=== PATIENT | male | born 1940 | race Caucasian/White ===

== ENCOUNTER → 2016-10-19 | Outpatient (CLI) | payer BC, OTHER ==
[~2016-10-19] MED LIST: CYAN500T13 PO; FINA5TAB PO; HYDR-5688 PO; MULT-506 PO; PANT40TA PO; SILD100T PO
--- NOTE | 2016-10-19 08:05 | DIAGNOSTIC IMAGING REPORT ---
INGUINAL ULTRASOUND CLINICAL HISTORY: RLQ PAIN COMPARISON STUDY: CT scan dated 511 FINDINGS: There is a small fat-containing reducible right internal hernia. IMPRESSION: Small fat-containing right inguinal hernia. Electronically signed by: Chase Donahue M.D. 10/19/2016 8:04 AM Dictated Date/Time: 10/19/2016 8:03 AM
== END | disposition home or self-care (01) ==
LOC: C.ULTR 07:36
PROVIDERS: ATTEND Family Medicine
DX: R10.31 Right lower quadrant pain (principal); K40.90 Unilateral inguinal hernia, without obstruction or gangrene, not specified as recurrent

== ENCOUNTER 2017-01-17 06:23 | Day surgery (SDC) | payer BC, OTHER ==
[2017-01-08 10:13] VITALS: Ht 182.9 cm; Wt 106.8 kg
[2017-01-08 10:21] LABS: BASO % 0.5 %; BASO ABS # 0.03 K/uL (0-0.2); COMPLETE YES; EOS % 5.1 %; HEMATOCRIT 43.4 % (42-52); IG% 1.1 %; LYMPH % 28.6 %; LYMPH ABS # 1.62 K/uL (1.2-3.4); MEAN CELL VOLUME 89.1 fL (80-100); MEAN CORPUSCULAR HGB CONC 34.8 g/dl (32-36); MEAN PLATELET VOLUME 9.2 fL (7.4-10.4); MONO % 11.3 %; NEUT % 53.4 %; PLATELET COUNT 239 K/uL (130-400); RED BLOOD COUNT 4.87 M/uL (4.7-6.1); WHITE BLOOD COUNT 5.67 K/uL (4.8-10.8)
--- NOTE | 2017-01-08 10:49 | PAT Medication Instructions ---
Service Date January 08, 2017. Current Home Medication List Cyanocobalamin (Vitamin B12 500MCG), 500 MCG PO QPM Multivitamin (Multivitamin), 1 TAB PO QPM Pantoprazole (Protonix), 40 MG PO HS Sildenafil Citrate (Viagra), 100 MG PO PRN Medication Instructions For Your Scheduled Surgery - Hold the following medications 24 hours prior to surgery: Sildenafil Citrate (Viagra), 100 MG PO PRN - Take the following medications as scheduled the night before surgery: Pantoprazole (Protonix), 40 MG PO HS Multivitamin (Multivitamin), 1 TAB PO QPM Cyanocobalamin (Vitamin B12 500MCG), 500 MCG PO QPM If you have any questions please call us at [phone] or [phone] ( Yasmeen) or [phone]
[2017-01-08 11:39] LABS: CALCIUM 8.7 mg/dl (8.5-10.1); CREATININE 0.88 mg/dl (0.60-1.40); POTASSIUM 4.3 mmol/L (3.5-5.1)
[~2017-01-17] VITALS: Ht 182.9 cm; Wt 106.8 kg
[~2017-01-17 06:23] MED LIST changes: +CEFAZOLIN 2000 MG/60 ML D5W IV SCH; -FINA5TAB PO; +HEPARIN SOD 5000 UNIT/0.5 ML CARP SQ SCH; -HYDR-5688 PO; +LACTATED RINGER'S 1000ML 1,000 ML IV SCH
[2017-01-17 07:04] VITALS: BP 143/73; PULSE 69; TEMP 36.7; O2SAT 95
[2017-01-17] MEDS ORDERED: FENTANYL CITRATE INJ 50 MCG/1 ML 2 ML VIAL ONE ×2 (07:15→08:35)
[2017-01-17] MEDS ORDERED: MIDAZOLAM HCL 1 MG/ML 2ML VIAL ONE (07:15)
[2017-01-17] MEDS ORDERED: BUPIVACAINE/EPINEPHRINE 0.5% MPF 1:200,000 30 ML VIAL ONE (08:03)
--- NOTE | 2017-01-17 08:07 | History & Physical Bridge Note ---
H&P Re-Evaluation Bridge Note: I have examined the patient, reviewed the History & Physical and in the interval since the performance of the History & Physical I have noted the following changes of clinical significance: No changes noted
[2017-01-17] MEDS ORDERED: DEXAMETHASONE SOD INJ 4 MG/ML VIAL ONE (08:53)
[2017-01-17] MEDS ORDERED: PROPOFOL IV EMULSION 10 MG/ML 20 ML VIAL IV ONE (08:53)
[2017-01-17] MEDS ORDERED: EpHEDrine SULFATE 50MG/5ML SYR ONE (08:53)
[2017-01-17] MEDS ORDERED: LIDOCAINE HCL 2% 2 ML VIAL (20MG/ML) ONE (08:53)
[2017-01-17] MEDS ORDERED: ROCURONIUM BROMIDE 10 MG/ML 5 ML VIAL ONE (08:53)
[2017-01-17] MEDS ORDERED: HYDR-5688 PO (09:15)
[2017-01-17] MEDS ORDERED: LACTATED RINGER'S 1000ML 1,000 ML IV SCH (09:17)
--- NOTE | 2017-01-17 09:17 | Discharge Instructions ---
Discharge Instructions Date of Service Jan 17, 2017. Visit Reason for Visit: Recurrent Right Inguinal Hernia Discharge Discharge Diagnosis / Problem: laparoscopic hernia repair Discharge Goals Goal(s): Decrease discomfort Activity Recommendations Activity Limitations: as noted below Lifting Limitations: no more than 10 pounds Shower/Bathe: no limitations Driving or Machine Use: resume 3 days after discharge Anesthesia . Post Anesthesia Instructions: If you have had General Anesthesia or IV Sedation: * Do not drive today. * Resume driving when surgeon permits. * Do not make important decisions or sign legal documents today. * Call surgeon for: 1. Temperature elevations greater than 101 degrees F. 2. Uncontrollable pain. 3. Excessive bleeding. 4. Persistent nausea and vomiting. 5. Medication intolerance (nausea, vomiting or rash). * For nausea and vomiting use only clear liquids such as: tea, soda, bouillon until nausea subsides, then gradually increase diet as tolerated. * If you have any concerns or questions, call your surgeon's office. If physician is unavailable and it is an emergency, call 911 or go to the nearest emergency room. . Instructions / Follow-Up Instructions / Follow-Up Dr. Moreland in 1-2 weeks, call [phone] if you do not already have an appt or with any concerns Diet Recommendations Recommended Home Diet: no limitations Procedures Procedures Performed: Laparoscopic Recurrent Right Inguinal Hernia Repair with Mesh Pending Studies Studies pending at discharge: no Medical Emergencies . Who to Call and When: Medical Emergencies: If at any time you feel your situation is an emergency, please call 911 immediately. . Non-Emergent Contact Non-Emergency issues call your: Surgeon Call Non-Emergent contact if: you have a fever, temperature is above 101.5, your pain is not controlled, wound has increased redness . . "Provider Documentation" section prepared by Grasyon Parker. .
[2017-01-17] MEDS ORDERED: ONDANSETRON INJ 2 MG/ML 2 ML VIAL ONE (09:20)
[2017-01-17] MEDS ORDERED: GLYCOPYRROLATE INJ 0.2 MG/ML VIAL ONE (09:20)
[2017-01-17] MEDS ORDERED: NEOSTIGMINE METHYLSULFATE 5 MG/5 ML SYR ONE (09:20)
[2017-01-17] MEDS ORDERED: KETOROLAC TROMETHAMINE 30 MG/ML VIAL ONE (09:21)
[2017-01-17] MEDS ORDERED: HYDROCODONE/ACETAMOPHEN 5/325MG TAB PO PRN (09:30)
[2017-01-17] MEDS ORDERED: EpHEDrine SULFATE INJ 50 MG/ML AMP IV PRN (09:30)
[2017-01-17] MEDS ORDERED: ATROPINE SULFATE 0.1 MG/ML 5ML SYR IV PRN (09:30)
[2017-01-17] MEDS ORDERED: MoRPHine SULFATE 2 MG/ML CARP IV PRN (09:30)
[2017-01-17] MEDS ORDERED: ONDANSETRON INJ 2 MG/ML 2 ML VIAL IV PRN ×2 (09:30)
[2017-01-17] MEDS ORDERED: FENTANYL CITRATE INJ 50 MCG/1 ML 2 ML VIAL IV PRN (09:30)
--- NOTE | 2017-01-17 09:34 | [facility] Operative Report ---
Operative Report Operative Date Jan 17, 2017. Pre-Operative Diagnosis Recurrent Right Inguinal Hernia Post-Operative Diagnosis recurrent RIH Procedure(s) Performed laparoscopic repair of recurrent RIH with mesh enterolysis Surgeon Dr. Moreland Survey Supervisor Surgeon(s) Lemuel Harrington PA-C Estimated Blood Loss 5 cc Findings recurrent direct RIH lower abdominal adhesions Specimens none per surgeon Anesthesia get Complication(s) None Disposition Recovery Room / PACU I attest to the content of the Intraoperative Record and any orders documented therein. Any exceptions are noted below.
[2017-01-17 10:00] VITALS: BP 132/70; PULSE 60; TEMP 36; O2SAT 95
--- NOTE | 2017-01-17 10:14 | Anesthesiology Progress Note ---
Anesthesia Post Op Note Date & Time Jan 17, 2017 at 10:14 Vital Signs Pain Intensity: 0 Vital Signs Past 12 Hours Date Time Temp Pulse Resp B/P (MAP) Pulse Ox O2 Delivery O2 Flow Rate FiO2 01/17/17 09:50 36.0 63 17 126/70 92 Room Air 01/17/17 09:45 65 18 123/73 93 Room Air 01/17/17 09:35 66 18 122/72 95 Room Air 01/17/17 09:25 70 16 135/80 98 Mask 10 01/17/17 09:14 36.1 78 16 147/78 96 Mask 10 01/17/17 07:04 36.7 69 18 143/73 (96) 95 Room Air Notes Mental Status: alert / awake / arousable, participated in evaluation Pt Amnestic to Procedure: Yes Nausea / Vomiting: adequately controlled Pain: adequately controlled Airway Patency, RR, SpO2: stable & adequate BP & HR: stable & adequate Hydration State: stable & adequate Anesthetic Complications: no major complications apparent
[2017-01-17 10:32] VITALS: BP 117/66; PULSE 60; TEMP 36; O2SAT 95
[2017-01-17 11:00] VITALS: BP 123/71; PULSE 71; TEMP 36.1; O2SAT 96
--- NOTE | 2017-01-17 11:03 | OPERATIVE REPORT ---
DATE OF OPERATION: 01/17/2017 PREOPERATIVE DIAGNOSIS: Recurrent right inguinal hernia. POSTOPERATIVE DIAGNOSIS: Recurrent right inguinal hernia as well as intraabdominal adhesions. PROCEDURE PERFORMED: 1. Laparoscopic repair of right inguinal hernia with mesh. 2. Enterolysis. SURGEON: Dr. Moreland. SLOT SERVICE SPECIALIST: Lemuel Parker PA-C. ESTIMATED BLOOD LOSS: Approximately 5 mL. COMPLICATIONS: No immediate. ANESTHESIA: General. The patient tolerated the procedure well. OPERATIVE NOTE: After informed consent was obtained, the patient taken to the operating suite, placed in supine position. After successful intubation, the abdomen was shaved and sterilely prepped and draped in usual fashion. An infraumbilical incision through an old scar was made with an 11 blade scalpel and carried down through the soft tissue using electrocautery. Anterior rectus fascia was opened using electrocautery and two #0 Vicryl stay sutures were placed. Peritoneum was elevated with hemostats and incised under direct vision using a Metzenbaum scissor. A finger sweep was performed. A 12 mm Renetta trocar was placed. The abdomen was insufflated to 18 mmHg. Laparoscope was inserted and the abdomen examined 360 degrees. There were some adhesions in the lower abdomen from small bowel as well as omentum. There was also what appeared to be a direct right inguinal hernia. We placed 2 left mid abdominal 5 mm trocars and placed the patient in a Trendelenburg position and slightly airplaned to the left. The previous left inguinal hernia repair was intact and solid. The patient did have a history of right orchiectomy and we did see some suture material behind the peritoneum. Medial to that in the direct space, there was what originally appeared to be a very small hernia. We used a Harmonic scalpel and initially we took down the adhesions in the lower abdomen. Once the adhesions were taken down, we then opened the peritoneum over the visible hernia and reduced the incarcerated preperitoneal fat. This left a more garden variety type of direct inguinal hernia. There was no bowel or other incarceration after we reduced the fat. Once we skeletonized the fascia of the defect, we then used a piece of Surgimesh with silicone barrier as an onlay. It was secured anteriorly to the anterior abdominal wall using a ProTacker as well as into the pubic bone itself. We tacked it primarily laterally and anteriorly as well as into the pubic bone itself. Once we had it tightly secured there was adequate hemostasis. No other abnormalities were noted within the abdomen. We watched as we slowly deflated the abdomen and the mesh folded upon itself into the defect quite nicely. We removed all the trocars and desufflated the abdomen. The fascia of the camera port was closed using 0 Vicryl in a [id number] fashion. All the wounds were irrigated and closed using 4-0 Monocryl. Marcaine was injected around them for postoperative analgesia and skin glue used as a dressing. The patient was awakened, extubated, and transferred to recovery in stable condition. I attest to the content of the Intraoperative Record and any orders documented therein. Any exception s are noted below.
== END 2017-01-17 11:05 | disposition home or self-care (01) ==
LOC: C.ACU 06:23
PROVIDERS: ATTEND Surgery
DX: K40.91 Unilateral inguinal hernia, without obstruction or gangrene, recurrent (principal); K66.0 Peritoneal adhesions (postprocedural) (postinfection); N40.1 Benign prostatic hyperplasia with lower urinary tract symptoms; N13.8 Other obstructive and reflux uropathy; E78.5 Hyperlipidemia, unspecified; N52.9 Male erectile dysfunction, unspecified; Z79.899 Other long term (current) drug therapy

== ENCOUNTER → 2017-04-08 | Outpatient (CLI) | payer BC, OTHER ==
[~2017-04-08] MED LIST changes: -CEFAZOLIN 2000 MG/60 ML D5W IV SCH; -HEPARIN SOD 5000 UNIT/0.5 ML CARP SQ SCH; +HYDR-5688 PO; -LACTATED RINGER'S 1000ML 1,000 ML IV SCH; +MethylPREDNISolone HOME PACK 16 MG TAB PO SCH; +OPTIRAY 320 IV PRN
--- NOTE | 2017-04-08 13:46 | DIAGNOSTIC IMAGING REPORT ---
PELVIS COMBO CLINICAL HISTORY: 77 years-old Male presenting with postoperative pain after right inguinal hernia repair. TECHNIQUE: Multidetector CT of the pelvis was performed before and after the administration of intravenous contrast. IV contrast: 93 mL of Optiray 320. A dose lowering technique was used consistent with the principles of ALARA (as low as reasonably achievable). COMPARISON: 12/24/2010. CT DOSE (mGy.cm): The estimated cumulative dose is 1407.14 mGycm. FINDINGS: Unit Technician topogram: IVC filter noted. A surgical mesh is now apparent along the anterior peritoneum of the right lower quadrant and right side wall with associated coil fixation john. Small bowel is in direct apposition to the mesh, which may suggest adhesions in this region. No bowel obstruction. No associated fluid collection with the surgical mesh or apparent malpositioning. No recurrent hernia. Sigmoid diverticulosis. No free fluid or gas. Bladder wall thickening is somewhat circumferential but slightly greater along the right anterior aspect. The right anterior dome of the bladder is immediately adjacent to one of the surgical coil john. This appearance is new from prior exam in 2010. Prostate is not significantly enlarged. Vasculature patent. No lymphadenopathy. Degenerative changes of the lower lumbar spine and sacroiliac joints. Bone marrow appears heterogeneously sclerotic, which is nonspecific and unchanged from prior. IMPRESSION: 1. Expected postoperative appearance of surgical mesh status post right lower quadrant hernia repair. No associated fluid collection. 2. Bladder wall thickening somewhat circumferential but slightly greater along the right anterior aspect. Although this could be seen in the setting of chronic outlet obstruction, the prostate is not significantly enlarged. This appearance is new from prior. Urologic consultation recommended. Electronically signed by: Perico Reyes M.D. 04/08/2017 1:45 PM Dictated Date/Time: 04/08/2017 1:39 PM
== END | disposition home or self-care (01) ==
LOC: C.CTS 04-05 13:41
PROVIDERS: ATTEND Surgery
DX: K40.91 Unilateral inguinal hernia, without obstruction or gangrene, recurrent (principal); Z98.890 Other specified postprocedural states; R93.41 Abnormal radiologic findings on diagnostic imaging of renal pelvis, ureter, or bladder; R30.0 Dysuria

== ENCOUNTER → 2017-04-08 | Outpatient (CLI) | payer BC, OTHER ==
[~2017-04-08] MED LIST changes: -MethylPREDNISolone HOME PACK 16 MG TAB PO SCH; -OPTIRAY 320 IV PRN
== END | disposition home or self-care (01) ==
LOC: C.LABSPEC 11:28
PROVIDERS: ATTEND Nurse Practitioner Family
DX: R30.0 Dysuria (principal)

== ENCOUNTER 2017-10-24 18:13 | Emergency (ER) | payer BC, OTHER ==
[~2017-10-24] VITALS: Ht 182.9 cm; Wt 101.0 kg
[~2017-10-24 18:13] MED LIST changes: -HYDR-5688 PO
[2017-10-24 18:23] VITALS: TEMP 36.8
--- NOTE | 2017-10-24 19:29 | EMERGENCY ROOM VISIT NOTE ---
History Report prepared by Killian: Sravan Olson Under the Supervision of: Dr. Juan Sims M.D. First contact with patient: 18:56 Chief Complaint: NEURO SYMPTOMS Stated Complaint: POSSIBLE STROKE, LOSS RT LEG DISLOCATED Nursing Triage Summary: Patient ambulatory to triage with a steady and upright gait, states "I had a long bout with coughing and phlegm. I thought it was the flu. I tried OTC meds and nothing worked. After 10 days, I went for treatment at the [facility]. I was started on an antibiotic. I don't know which one it was. I took it for 10 days but it didn't help. I started having memory loss and shaking on the second of this month. I almost burnt my house down because I can't focus. I have throbbing in my legs and I have some redness on my right lower leg." History of Present Illness The patient is a 77 year old male with a past medical history of previous blood clots, pancreatitis, and steroid induced psychosis who presents to the ED with a cc of intermittent episodes of short term memory loss beginning a week ago. Positive for a productive cough, abdominal pain, leg rash , tremors, and difficulty concentrating. Negative for urinary symptoms. The patient states that he has had flu like symptoms recently, and was prescribed an antibiotic treatment for 10 days. He notes that following his antibiotic treatment he developed his short term memory loss. He reports that he also developed the tremor in his hands. Per , the patient's pace has been slower and he has been more disoriented. Source of History: patient, spouse/significant other Onset: a week ago Position: head Quality: other (short term memory loss) Timing: other (intermittent episodes) Associated Symptoms: + cough (productive), + abdominal pain, + rash (leg), No urinary symptoms Note: The patient also complains of tremors and difficulty concentrating. Per , the patient has been slower and more disoriented than usual. Review of Systems See HPI for pertinent positives and negatives. A total of ten systems were reviewed and were otherwise negative. Past Medical & Surgical Medical Problems: (1) Cholecystectomy (2) Hx of blood clots (3) Idiopathic thrombocytopenic purpura (4) Neuropathy (5) Pancreatitis (6) Steroid-induced psychosis Family History No pertinent family history stated. Social History Smoking Status: Former Smoker Drug Use: none Marital Status: Housing Status: lives with family Occupation Status: retired Current/Historical Medications Scheduled Cyanocobalamin (Vitamin B12 500MCG), 500 MCG PO QPM Multivitamin (Multivitamin), 1 TAB PO QPM Pantoprazole (Protonix), 40 MG PO HS Sildenafil Citrate (Viagra), 100 MG PO PRN Allergies Coded Allergies: Iodinated Contrast Media (Verified Allergy, Unknown, HIVES,HOT FLUSHED FEELING, 10/24/17) Iodine (Verified Allergy, Unknown, HIVES, HOT FLASHES WITH IV DYE0NO PROBLEM WITH TOPICAL, 10/24/17) Prednisone (Verified Adverse Reaction, Severe, PSYCHOSIS, 10/24/17) SEVERE PSYCHOSIS Physical Exam Vital Signs Date Time Temp Pulse Resp B/P (MAP) Pulse Ox O2 Delivery O2 Flow Rate FiO2 10/24/17 23:00 140/97 10/24/17 22:58 73 25 97 10/24/17 22:43 68 20 95 10/24/17 22:30 69 18 125/79 94 Room Air 10/24/17 22:30 125/79 10/24/17 22:28 69 14 95 10/24/17 22:13 69 23 94 10/24/17 22:00 150/93 10/24/17 21:58 69 17 96 10/24/17 21:43 70 14 95 10/24/17 21:30 165/108 10/24/17 21:28 72 15 97 10/24/17 21:13 73 14 96 10/24/17 21:00 72 18 145/89 96 Room Air 10/24/17 21:00 145/89 10/24/17 20:58 72 18 97 10/24/17 20:43 75 22 96 10/24/17 20:30 144/82 10/24/17 20:28 75 21 96 10/24/17 20:13 76 24 96 10/24/17 20:00 141/81 10/24/17 19:58 97 Room Air 10/24/17 19:58 75 18 147/81 97 Room Air 10/24/17 18:23 36.8 96 20 148/93 96 Room Air Physical Exam GENERAL: Awake, alert, well-appearing, NAD HENT: Normocephalic, atraumatic. EYES: Normal conjunctiva. Sclera non-icteric. NECK: Supple. No nuchal rigidity. FROM. RESPIRATORY: CTAB, no rhonchi, wheezing, crackles CARDIAC: RRR, no MRG ABDOMEN: Soft, NTND, BS+ MSK: No chest wall TTP, no LE edema, mild dysmetria with RUE, mild intention tremor with LUE. NEURO: CN 2-12 intact, 5/5 upper and lower extremity strength, no dysmetria, no drift, good finger to nose, no sensory deficits. SKIN: No jaundice noted, non-blanching petechial rash on RLE Medical Decision & Procedures ER Provider Diagnostic Interpretation: Radiology results as stated below per my review and radiologist interpretation: HEAD WITHOUT CONTRAST (CT) FINDINGS: No acute intracranial hemorrhage, midline shift, intracranial mass, hydrocephalus, territorial ischemia or abnormal extra-axial collection. Mild brain atrophy. Senescent calcifications noted within the lentiform nuclei. Ill-defined areas of low-attenuation within the periventricular white matter suggest mild chronic microvascular ischemic changes. Cerebral vascular calcifications are seen at the level of the skull base. The calvarium is intact. Trace left mastoid effusion. Right mastoid air cells are clear. Mild mucosal thickening with small air-fluid level of the left maxillary sinus compatible with acute sinusitis. Mild ethmoid sinus disease. Soft tissues and orbits are unremarkable. IMPRESSION: No acute intracranial abnormality. The above report was generated using voice recognition software. It may contain grammatical, syntax or spelling errors. Electronically signed by: Angel Black M.D. 10/24/2017 7:54 PM CHEST ONE VIEW PORTABLE FINDINGS: Cardiomediastinal and hilar silhouettes are within normal limits. There is no pneumothorax, pleural effusion, focal airspace consolidation or overt pulmonary edema. Chronic mild blunting of the costophrenic angles suggests scarring or atelectasis. Increased lucency of the lungs suggests emphysema. Bones of the chest appear grossly intact. IVC filter noted within the right upper abdomen. Surgical clips in the right upper abdomen suggest prior cholecystectomy. Calcification projects over the left chest wall. IMPRESSION: No acute process. The above report was generated using voice recognition software. It may contain grammatical, syntax or spelling errors. Electronically signed by: Angel Black M.D. 10/24/2017 7:55 PM Laboratory Results 10/24/17 19:27 Red Blood Count 5.19, Mean Corpuscular Volume 88.2, Mean Corpuscular Hemoglobin 30.4, Mean Corpuscular Hemoglobin Concent 34.5, Mean Platelet Volume 9.3, Neutrophils (%) (Auto) 50.2, Lymphocytes (%) (Auto) 31.7, Monocytes (%) (Auto) 11.6, Eosinophils (%) (Auto) 4.8, Basophils (%) (Auto) 0.8, Neutrophils # (Auto ) 3.25, Lymphocytes # (Auto) 2.05, Monocytes # (Auto) 0.75, Eosinophils # (Auto ) 0.31, Basophils # (Auto) 0.05 10/24/17 19:27 Test 10/24/17 19:25 10/24/17 19:27 Urine Color YELLOW Urine Appearance CLEAR (CLEAR) Urine pH 5.0 (4.5-7.5) Urine Specific [place] 1.022 (1.000-1.030) Urine Protein NEG (NEG) Urine Glucose (UA) NEG (NEG) Urine Ketones NEG (NEG) Urine Occult Blood 2+ (NEG) Urine Nitrite NEG (NEG) Urine Bilirubin NEG (NEG) Urine Urobilinogen NEG (NEG) Urine Leukocyte Esterase NEG (NEG) Urine WBC (Auto) 1-5 /hpf (0-5) Urine RBC (Auto) 0-4 /hpf (0-4) Urine Hyaline Casts (Auto) 1-5 /lpf (0-5) Urine Epithelial Cells (Auto) 5-10 /lpf (0-5) Urine Bacteria (Auto) NEG (NEG) Influenza Type A Antigen Neg for Influ A (NEG) Influenza Type B Antigen Neg for Influ B (NEG) White Blood Count 6.47 K/uL (4.8-10.8) Red Blood Count 5.19 M/uL (4.7-6.1) Hemoglobin 15.8 g/dL (14.0-18.0) Hematocrit 45.8 % (42-52) Mean Corpuscular Volume 88.2 fL (80-100) Mean Corpuscular Hemoglobin 30.4 pg (25-34) Mean Corpuscular Hemoglobin Concent 34.5 g/dl (32-36) Platelet Count 253 K/uL (130-400) Mean Platelet Volume 9.3 fL (7.4-10.4) Neutrophils (%) (Auto) 50.2 % Lymphocytes (%) (Auto) 31.7 % Monocytes (%) (Auto) 11.6 % Eosinophils (%) (Auto) 4.8 % Basophils (%) (Auto) 0.8 % Neutrophils # (Auto) 3.25 K/uL (1.4-6.5) Lymphocytes # (Auto) 2.05 K/uL (1.2-3.4) Monocytes # (Auto) 0.75 K/uL (0.11-0.59) Eosinophils # (Auto) 0.31 K/uL (0-0.5) Basophils # (Auto) 0.05 K/uL (0-0.2) RDW Standard Deviation 44.7 fL (36.4-46.3) RDW Coefficient of Variation 13.8 % (11.5-14.5) Immature Granulocyte % (Auto) 0.9 % Immature Granulocyte # (Auto) 0.06 K/uL (0.00-0.02) Prothrombin Time 11.2 SECONDS (9.0-12.0) Prothromb Time International Ratio 1.1 (0.9-1.1) Activated Partial Thromboplast Time 28.0 SECONDS (21.0-31.0) Partial Thromboplastin Ratio 1.1 Anion Gap 4.0 mmol/L (3-11) Est Creatinine Clear Calc Drug Dose 76.8 ml/min Estimated GFR () 86.8 Estimated GFR (Non- 74.9 BUN/Creatinine Ratio 23.2 (10-20) Calcium Level 9.4 mg/dl (8.5-10.1) Magnesium Level 2.5 mg/dl (1.8-2.4) Total Bilirubin 0.4 mg/dl (0.2-1) Direct Bilirubin 0.1 mg/dl (0-0.2) Aspartate Amino Transf (AST/SGOT) 20 U/L (15-37) Alanine Aminotransferase (ALT/SGPT) 23 U/L (12-78) Alkaline Phosphatase 79 U/L (45-117) Total Creatine Kinase 153 U/L (39-308) Total Protein 8.3 gm/dl (6.4-8.2) Albumin 4.2 gm/dl (3.4-5.0) Lipase 179 U/L (73-393) Thyroid Stimulating Hormone (TSH) 1.410 uIu/ml (0.300-4.500) Lyme Disease IgG Antibody NEG (NEG) Lyme Disease IgM Antibody NEG (NEG) Laboratory results reviewed by me ECG Per My Interpretation Indication: altered mental status Rate (beats per minute): 77 Rhythm: normal sinus Findings: other (Normal intervals, normal axis, no STS changes or TWI) ED Course 1905: The patient was evaluated in room A4. A complete history and physical exam was performed. 2144: I spoke [place] C[place] [facility] [place] states that the patient's condition is non-emergent. She suggests taking an MRI and monitoring the patient 's B12 levels. She is happy to see the patient tomorrow as an outpatient. 2303: I reevaluated the patient. Discussed results and discharge instructions: He verbalized understanding and agreement. The patient is ready for discharge. Medical Decision The patient is a 77 year old male with a past medical history of previous blood clots, pancreatitis, and steroid induced psychosis who presents to the ED with a cc of intermittent episodes of short term memory loss beginning a week ago. Positive for a productive cough, abdominal pain, leg rash , tremors, and difficulty concentrating. Negative for urinary symptoms. Differential diagnosis: Etiologies such as metabolic, infection, hypo/hyperglycemia, electrolyte abnormalities, cardiac sources, intracerebral event, toxicologic, neurologic, as well as others were entertained. Patient was seen and evaluated the bedside. Patient was complaining of some recent memory loss. He believes this began approximately 1-2 weeks prior. Patient also had some issues with walking and some tremor. The patient is a and O 3 with a GCS of 15. Patient is able to follow commands. Patient does not have any focal neuro deficits. Patient does have a slight tremor of the left upper extremity with intention. Patient did have a CT of the head, blood work, EKG, troponin, chest x-ray. Patient's blood work was fairly unremarkable. Patient had a normal white blood cell count and kidney function. Patient had a negative troponin. Patient's EKG was unremarkable. Less likely ACS or arrhythmia. Patient chest x-ray was clear. Less likely pneumonia or mass. Patient CT the brain was negative. Patient did not have any focal neuro deficits believe this less likely to be a stroke or TIA. Also doubt delirium as more subacute to chronic at this point than truly acute in nature. Patient had a negative urinalysis. Patient also had negative Lyme's and flu. I did discuss case with the on-call neurologist who believes that the patient would benefit from an outpatient workup. I do not believe he required any further treatment here in the emergency department. I did explain this and the findings to the patient and family member. I did discuss the patient with the manager case management in order to help facilitate a follow-up appointment with the neurologist. This was also conveyed to the patient and family member. Patient was deemed suitable for outpatient follow-up and treatment at this time. Patient was given strict follow-up, discharge, and return precautions. All questions were answered. Patient was deemed suitable for outpatient follow-up at this time. Patient agreed with the plan of care and was safely discharged home. Blood Pressure Screening Patient's blood pressure: Elevated blood pressure Blood pressure disposition: Referred to PCP Consults Time Called: 2140 Consulting Physician: DANIELLA Reyes Returned Call: 2144 I spoke to CARLA Reyes. She states that the patient's condition is non-emergent. She suggests taking an MRI and monitoring the patient 's B12 levels. She is happy to see the patient tomorrow as an outpatient. Impression Primary Impression: Short-term memory loss Additional Impression: Tremor Scribe Attestation The scribe's documentation has been prepared under my direction and personally reviewed by me in its entirety. I confirm that the note above accurately reflects all work, treatment, procedures, and medical decision making performed by me. Departure Information Dispostion Home / Self-Care Referrals No Doctor, Assigned (PCP) Forms HOME CARE DOCUMENTATION FORM, IMPORTANT VISIT INFORMATION, WORK / SCHOOL INSTRUCTIONS Patient Instructions ED Confusion, My [facility] Additional Instructions Please return to the emergency department if you have worsening or recurrent symptoms not amenable to at-home treatment. Please call for a follow-up appointment with her primary care physician. Please take your medications as prescribed. If you have other concerns and/or complaints please feel free to also call your primary care physician's office or return the ED for further evaluation, management, and treatment. Please follow-up with your primary care physician. Please follow the instructions of the manager case management in order to help obtain your follow-up appointment with the neurologist. Take your medications as prescribed. You have been examined and treated today on an emergency basis only. This is not a substitute for, or an effort to provide, complete comprehensive medical care. It is impossible to recognize and treat all injuries or illnesses in a single emergency department visit. It is therefore important that you follow up closely with [facility], your PCP, and/or your specialist(s). Call as soon as possible for an appointment. Thank you for your time and consideration. I look forward to speaking with you again soon. Please don't hesitate to call us if you have any questions. Problem Qualifiers
[2017-10-24 19:32] VITALS: Ht 182.9 cm; Wt 101.0 kg
[2017-10-24 19:54] LABS: BASO % 0.8 %; BASO ABS # 0.05 K/uL (0-0.2); EOS % 4.8 %; EOS ABS # 0.31 K/uL (0-0.5); HEMATOCRIT 45.8 % (42-52); HEMOGLOBIN 15.8 g/dL (14.0-18.0); IG# 0.06 K/uL (0.00-0.02); LYMPH % 31.7 %; LYMPH ABS # 2.05 K/uL (1.2-3.4); MEAN CELL VOLUME 88.2 fL (80-100); MEAN CORPUSCULAR HEMOGLOBIN 30.4 pg (25-34); MEAN CORPUSCULAR HGB CONC 34.5 g/dl (32-36); MEAN PLATELET VOLUME 9.3 fL (7.4-10.4); MONO % 11.6 %; MONO ABS # 0.75 K/uL (0.11-0.59); NEUT % 50.2 %; NEUT ABS # 3.25 K/uL (1.4-6.5); PLATELET COUNT 253 K/uL (130-400); RED CELL DISTRIBUTION WIDTH CV 13.8 % (11.5-14.5); RED CELL DISTRIBUTION WIDTH SD 44.7 fL (36.4-46.3); WHITE BLOOD COUNT 6.47 K/uL (4.8-10.8)
--- NOTE | 2017-10-24 19:55 | DIAGNOSTIC IMAGING REPORT ---
HEAD WITHOUT CONTRAST (CT) CLINICAL HISTORY: 77 years-old Male with EVALUATE WEAKNESS. Acute weakness TECHNIQUE: Multiple axial CT images of the head were obtained without contrast. A dose lowering technique was utilized adhering to the principles of ALARA. CT DOSE: 712.55 mGy.cm COMPARISON: Head CT 02/10/2013. FINDINGS: No acute intracranial hemorrhage, midline shift, intracranial mass, hydrocephalus, territorial ischemia or abnormal extra-axial collection. Mild brain atrophy. Senescent calcifications noted within the lentiform nuclei. Ill-defined areas of low-attenuation within the periventricular white matter suggest mild chronic microvascular ischemic changes. Cerebral vascular calcifications are seen at the level of the skull base. The calvarium is intact. Trace left mastoid effusion. Right mastoid air cells are clear. Mild mucosal thickening with small air-fluid level of the left maxillary sinus compatible with acute sinusitis. Mild ethmoid sinus disease. Soft tissues and orbits are unremarkable. IMPRESSION: No acute intracranial abnormality. The above report was generated using voice recognition software. It may contain grammatical, syntax or spelling errors. Electronically signed by: Angel Black M.D. 10/24/2017 7:54 PM Dictated Date/Time: 10/24/2017 7:51 PM
--- NOTE | 2017-10-24 19:57 | DIAGNOSTIC IMAGING REPORT ---
CHEST ONE VIEW PORTABLE HISTORY: 77 years-old Male EVALUATE WEAKNESS acute weakness COMPARISON: Chest radiograph 02/08/2016 TECHNIQUE: Portable AP view of the chest FINDINGS: Cardiomediastinal and hilar silhouettes are within normal limits. There is no pneumothorax, pleural effusion, focal airspace consolidation or overt pulmonary edema. Chronic mild blunting of the costophrenic angles suggests scarring or atelectasis. Increased lucency of the lungs suggests emphysema. Bones of the chest appear grossly intact. IVC filter noted within the right upper abdomen. Surgical clips in the right upper abdomen suggest prior cholecystectomy. Calcification projects over the left chest wall. IMPRESSION: No acute process. The above report was generated using voice recognition software. It may contain grammatical, syntax or spelling errors. Electronically signed by: Angel Black M.D. 10/24/2017 7:55 PM Dictated Date/Time: 10/24/2017 7:54 PM
[2017-10-24 19:58] VITALS: O2SAT 97
[2017-10-24 20:02] LABS: INR 1.1 (0.9-1.1)
[2017-10-24 20:04] LABS: INFLUENZA B ANTIGEN Neg for Influ B (NEG)
[2017-10-24 20:16] LABS: ALBUMIN 4.2 gm/dl (3.4-5.0); CALCIUM 9.4 mg/dl (8.5-10.1); CREATININE 0.96 mg/dl (0.60-1.40); POTASSIUM 4.3 mmol/L (3.5-5.1)
[2017-10-24 20:24] LABS: TOTAL PROTEIN 8.3 gm/dl (6.4-8.2)
[2017-10-24 22:58] VITALS: PULSE 73; O2SAT 97
[2017-10-24 23:00] VITALS: BP 140/97
== END 2017-10-24 23:04 | disposition home or self-care (01) ==
LOC: C.EDB 18:13 → C.EDA 23:04
DX: R41.3 Other amnesia (principal); R25.1 Tremor, unspecified; Z86.718 Personal history of other venous thrombosis and embolism; D69.3 Immune thrombocytopenic purpura; Z90.49 Acquired absence of other specified parts of digestive tract; G62.9 Polyneuropathy, unspecified; Z87.891 Personal history of nicotine dependence; Z79.899 Other long term (current) drug therapy; Z91.041 Radiographic dye allergy status; Z88.8 Allergy status to other drugs, medicaments and biological substances

== ENCOUNTER → 2017-10-30 | Outpatient (CLI) | payer BC, OTHER ==
--- NOTE | 2017-10-30 17:53 | DIAGNOSTIC IMAGING REPORT ---
RIGHT LOWER EXTREMITY VENOUS DOPPLER CLINICAL HISTORY: RIGHT LEG SWELLING, R/O DVT, R41.3,R20.0 COMPARISON STUDY: Right lower extremity venous Doppler ultrasound January 09, 2016. TECHNIQUE: Sonography of the deep venous system of the right lower extremity was performed. Compression and augmentation were evaluated. FINDINGS: The right common femoral, superficial femoral and popliteal veins were compressible. Augmentation was normal. Flow was shown within the deep calf vessels. Note is made of a 6.5 x 1.2 x 2.4 cm right popliteal cyst. IMPRESSION: 1. No evidence of deep venous thrombus within the right lower extremity. 2. 6.5 x 1.2 x 2.4 cm right popliteal cyst. Electronically signed by: uCrt Dumont M.D. 10/30/2017 5:52 PM Dictated Date/Time: 10/30/2017 5:49 PM
[2017-10-31 07:40] LABS: HEMOGLOBIN A1C 5.9 % (4.5-5.6)
== END | disposition home or self-care (01) ==
LOC: C.ULTR 17:13
PROVIDERS: ATTEND Psychiatry & Neurology Neurology
DX: M79.89 Other specified soft tissue disorders (principal); R41.3 Other amnesia; R20.0 Anesthesia of skin; M71.21 Synovial cyst of popliteal space [Baker], right knee

== ENCOUNTER → 2017-11-05 | Outpatient (CLI) | payer BC, OTHER ==
--- NOTE | 2017-11-05 16:33 | DIAGNOSTIC IMAGING REPORT ---
MRI OF THE BRAIN WITHOUT CONTRAST CLINICAL HISTORY: R41.3 Memory [id number] CONFUSION. COMPARISON STUDY: 02/10/2013, head CT dated 10/24/2017 FINDINGS: Sagittal T1, axial diffusion, proton density and T2 weighted axial, coronal FLAIR, and axial T1-weighted images were acquired. No intra or extra-axial mass lesions are visualized Axial diffusion-weighted images reveal no evidence of acute or subacute infarction. There is no evidence of ventricular dilatation. Proton density T2-weighted and FLAIR images reveal scattered foci of increased T2 signal within the white matter, likely on a small vessel basis. There are no abnormal flow voids. IMPRESSION: 1. No significant change from the preceding study 2. No evidence of acute or subacute infarction 3. No evidence of intracranial mass on this noncontrast study 4. Minor foci of increased T2 signal within the white matter, likely on a small vessel basis and similar to the preceding examination Electronically signed by: Chase Donahue M.D. 11/05/2017 4:32 PM Dictated Date/Time: 11/05/2017 4:29 PM
== END | disposition home or self-care (01) ==
LOC: C.MRIBC 15:31
PROVIDERS: ATTEND Psychiatry & Neurology Neurology
DX: R41.3 Other amnesia (principal)

== ENCOUNTER → 2017-11-07 | Outpatient (CLI) | payer BC, OTHER | END | disposition home or self-care (01) | LOC: C.RDSM 11:00 | PROVIDERS: ATTEND Family Medicine Sports Medicine | DX: M54.6 Pain in thoracic spine (principal) ==

== ENCOUNTER → 2017-11-15 | Outpatient (CLI) | payer BC, OTHER | END | disposition home or self-care (01) | LOC: C.LAB1850 12:28 | PROVIDERS: ATTEND Psychiatry & Neurology Neurology | DX: R41.3 Other amnesia (principal) ==

== ENCOUNTER → 2017-11-26 | Outpatient (CLI) | payer BC, OTHER | END | disposition home or self-care (01) | LOC: C.NEUR 12:50 | PROVIDERS: ATTEND Psychiatry & Neurology Neurology | DX: R41.89 Other symptoms and signs involving cognitive functions and awareness (principal); R46.89 Other symptoms and signs involving appearance and behavior ==

== ENCOUNTER → 2018-03-10 | Outpatient (CLI) | payer BC, OTHER ==
--- NOTE | 2018-03-11 06:39 | PAP/PSG TECHNICIAN REPORT ---
[facility] Record Retrieval Specialist Polysomnogram Report Study name: None Report date: 03/11/2018 Study date: 03/10/2018 Referring Physician: Dr. Kellogg Name: JUVENAL DURANT JR. Interpreting Physician: Sanjeev Kellogg D.O. Date of : 1940 Record Retrieval Specialist: JESSE Butler. Sex: Male Age: 78 StudyType: PSG Weight: 231 lbs 16.5 inches Height: 78 years, Height 6' 0" Neck Circum: BMI: 31.33 Medications: VIT B12 Patient History PATIENT HAS HISTORY OF KAREEN, SNORING AND MEMORY LOSS. PATIENT HAD KAREEN IN THE PAST AND TRIED CPAP BUT COULDNT TOLERATE IT. HE IS HERE TODAY FOR AN EVALUATION FOR KAREEN. ESS = 6 RM 8 Parameters Monitored NPSG: E1-M2, E2-M1, Fp1-M2, Fp2-M1, F3-M2, F4-M2, F4-M1, C3-M2, C4-M2, C4-M1, O1-M2, O2-M2, O2-M1, T3-M2, T4-M1, P3-M2, P4-M1, CHIN1, CHIN2, HR, EKG, Legs, PFLOW, SNOR, FLOW, CFLOW, Tidal Volume, THOR, ABDO, SpO2, PLTH, CPRESS, ETCO2 Wave, ETCO2, pH Sleep Architecture Sleep Stages Time at Lights Off 9:33:06 PM STAGES Time (min.) TST (%) Time at Lights On 5:21:06 AM Wake 133.5 -- Total Recording Time (TRT) 468.50 min. N1 35.0 10 Total Sleep Period (TSP) 432.5 min. N2 206.0 62 Total Sleep Time (TST) 334.5min. N3 38.0 11 Awake Time 133.5 min. REM 55.5 17 Wake after Sleep Onset 98.0 min. Sleep Efficiency (SE) 71 % Sleep Onset Latency (KAMERON) 35.5 min. Number of Stage 1 Shifts None Awakenings 36 Stage Changes 111 Number of REM periods 3 REM 55.5 17 REM Latency 123.5 min. NREM 279.0 83 Body Position Analysis Supine Right Left Side Prone Vertical Total Sleep Time (min.) 208.7 233.5 0.0 233.50 0.0 0.0 Total Sleep Time (%) 30% 70% 0% 70 0% N/A% Total Sleep Time REM (min.) 0.0 55.5 0.0 None 0.0 0.0 Total Sleep Time NREM (min.) 101.0 178.0 0.0 None 0.0 0.0 Intermittent Wake (min.) 107.7 25.8 0.0 None 0.0 0.0 Total Sleep Period (%) 40% None None None None None Arousals Myoclonus (PLM) * Events Count Index Events Count Index Spontaneous 48 9 Events Awake (PLMW) 86 38.7 Respiratory 48 9.1 Events Asleep w/ Arousal (PLMA) 1 0.2 PLM 1 0 Events Asleep w/o Arousal (PLMS) 42 7.5 Snoring 2 0 Total Asleep 43 7.7 Total 99 18 Total 129 17 Respiratory Analysis * CA OA MA CH H RERA Total Count 18 40 68 0 11 0 137 Index 3.2 7.2 12.2 0 2.0 0 24.6 Mean Duration 22.9 23.3 30.1 0.00 16.7 0.0 26.1 Longest Duration 33.1 36.9 44.1 0.00 44.1 0.0 44.1 Respiratory Event Summary Total Supine ~Supine Right Left Prone REM NREM Apneas Count 126 86 40 40 N/A N/A 1 125 Index 22.6 51 10 10.3 N/A N/A 1 27 Hypopneas (4% Desat) Count 11 5 6 6 N/A N/A 0 11 Index 2.0 3.0 2 1.5 N/A N/A 0.0 2.4 Apneas & All Hypopneas Count 137 91 46 46 N/A N/A 1 136 Index 24.6 54 12 12 N/A N/A 1.1 29.2 Respiratory Events (Big Data Admin+All Hyp+RERA) Count 137 91 46 46 N/A N/A 1 136 Index 24.6 54 12 11.8 N/A N/A 1.1 29.2 Respiratory Related Arousal Count 48 91 19 19 N/A N/A 1 50 Index 9.1 19 5 5 N/A N/A 1 11 Snoring Analysis Supine Right Left Prone REM NREM Total Snore duration 2.0 min Snores count 40 31 N/A N/A 9 62 71 Snore mean duration 1.7 Sec Snores index 24 8 N/A N/A 9.7 13.3 12.7 TST with snoring (%) 0.6% Desaturation Event Summary: Minimum %SpO2 Event Count Mean/Min/Max Duration(sec.) Desaturation Index % Time In Bed > 90 162 34.8 / 11.3 / 60.0 22.5 93.8 86 - 90 0 N/A 0.0 6.2 81 - 85 0 N/A 0.0 0.0 76 - 80 0 N/A 0.0 0.0 71 - 75 0 N/A 0.0 0.0 66 - 70 0 N/A 0.0 0.0 61 - 65 0 N/A 0.0 0.0 56 - 60 0 N/A 0.0 0.0 51 - 55 0 N/A 0.0 0.0 < 50 0 N/A 0.0 0.0 Total REM NREM Awake <50% 0.0 min. 0.0 min. 0.0 min. 0.0 min. 51 - 60% 0.0 min. 0.0 min. 0.0 min. 0.0 min. 61 - 70% 0.0 min. 0.0 min. 0.0 min. 0.0 min. 71 - 80% 0.0 min. 0.0 min. 0.0 min. 0.0 min. 81 - 90% 28.6 min. 0.2 min. 18.9 min. 9.4 min. 91 - 100% 431.5 min. 55.2 min. 259.9 min. 116.3 min. Average 94 96 94 94 Minimum SpO2 85 88 85 86 Desaturation Event Index 20.8 1.1 29.2 13.0 # Desat. Events below 89% 45 1 40 4 Time(%) with Saturation below 89% 1.3 0.0 1.0 0.3 Time(min.) with Saturation below 89% 5.9 0.0 4.6 1.3 Time (mins) REM (mins) NREM (mins) % of TST SpO2 Below 90% 86 1 N85 2.9 SpO2 Below 88% 24 0 0 0 Heart Rate Analysis Min (bpm) Max (bpm) Average (bpm) Awake 58 84 64 NREM 57 71 62 REM 59 71 65 Overall 57 71 62 Supplemental O2 Values Minimum O2 level: None Value Start Time End Time Record Retrieval Specialist Comments Mr. Durant slept in the right and supine positions. No cardiac arrhythmia noted. Leg movements noted. No bruxism noted. Snoring was noted and scored as a 3 on a scale of 1 through 5. (0=no snoring, 5=snoring loud enough to be heard through a closed door or down the ambrosio way) Mr. Durant awoke to use the restroom 1 time during the night. Mr. Durant stated I slept as well as I do when I am in my own bed. The final report will be interpreted and signed by a sleep physician. The completed physician report will then be placed in the patient medical record. Therapy (cm H2O) 0 TIB (min.) 468.0 TST (min.) 334.5 Sleep Onset (min.) 35.5 REM Onset From Sleep (min.) 123.5 Sleep Efficiency % 71 Wakefulness (%) 29 Wakefulness (min.) 133.5 NREM 1 (%) 10 NREM 1 (min.) 35.0 NREM 2 (%) 62 NREM 2 (min.) 206.0 NREM 3 (%) 11 NREM 3 (min.) 38.0 REM (%) 17 REM (min.) 55.5 # Arousals 99 Arousal Index 18 # Snore 71 Snore Index 12.7 AHI 24.6 AHI Supine 54 AHI Non-Supine 12 NREM AHI 29.2 REM AHI 1.1 RDI 24.6 # Obstructive Apnea 40 # Central Apnea 18 # Mixed Apnea 68 # Hypopneas 11 RERAs 0 Total Respiratory Events 140 Time Below SpO2 89% (min.) 4.6 Mean NREM SpO2 (%) 94 Mean REM SpO2 (%) 96 Mean Sleep SpO2 (%) 94 Min NREM SpO2 (%) 85 Min REM SpO2 (%) 88 Position Supine (min.) 208.7 Position Non-supine (min.) 233.5 LM Index Sleep 7.7 LM Index NREM 7.7 LM Index REM 7.6 Mean Heart Rate (bpm) 62 Min Heart Rate (bpm) 57
--- NOTE | 2018-03-13 22:26 | POLYSOMNOGRAPH REPORT ---
CLINICAL DATA: The patient is an 78-year-old male with a history of sleep apnea in the past. He did not tolerate nasal CPAP therapy. He has had problems with memory loss. He also has a history of snoring and observed apneas. His BMI is 31.33. The Warren sleepiness scale score is 6. This was an in-lab overnight polysomnography. SLEEP ARCHITECTURE: The total sleep period was 432.5 minutes. The total sleep time is 334.5 minutes. The sleep efficiency is moderately reduced to 71%. The sleep latency was prolonged to 35.5 minutes. Wake after sleep onset was increased to 98 minutes. The REM latency was prolonged at 123.5 minutes. There were 3 REM periods during the night. Sleep consisted of stage N1 10%, stage N2 62%, stage N3 11%, stage REM 17%. AROUSAL DATA: The patient had 99 arousals including 2 snoring, 1 PLM, 48 respiratory, and 48 spontaneous. The arousal index was 18. PLM DATA: The patient had 43 periodic limb movements of sleep for a PLM index of 7.7. There was only one arousal associated with limb movements for a PLM arousal index of 0.2. EKG: The underlying cardiac rhythm was normal sinus. The cardiac rates ranged from 57-71 beats per minute with an average of 62 beats per minute. No cardiac arrhythmia noted. RESPIRATORY DATA: The patient had a total of 137 respiratory events including 18 central apneas, 40 obstructive apneas, 68 mixed apneas, and 11 hypopneas. Hypopneas were scored according to the 4% desaturation rule. The longest apnea was 44.1 seconds. The mean duration of the hypopneas was 16.7 seconds. The apnea hypopnea index was moderately elevated at 24.6 events per hour. This reflects moderate sleep apnea. OXIMETRY DATA: The average saturation for the night was 94%. The minimum saturation was 85%. The patient had a total of 5.9 minutes with saturations less than 89%. DEPUTY DIRECTOR COMMENTS: Mr. Thakur slept in the right and supine positions. No cardiac arrhythmia noted. Leg movements noted. No bruxism noted. Snoring was noted and scored as a 3 on a scale of 1 through 5. Mr. Thakur awoke to use the restroom one time during the night. He stated that he slept as well as he does in his own bed. IMPRESSION: Moderate obstructive sleep apnea. COMMENTS: Mr. Thakur had a decreased sleep efficiency. He had a moderate amount of apnea, the majority of the events being apneas rather than hypopneas. Oxygenation was only mildly disturbed. There was a much greater frequency of events while the patient was supine as the apnea hypopnea index was 54 in the supine position. Curiously in REM sleep, there was very little sleep apnea. The patient previously had not done well with nasal CPAP. Options would be to have a trial of CPAP or perhaps a trial of BiPAP in light of his difficulty tolerating CPAP. RECOMMENDATIONS: 1. It is advised that the patient be given a titration study with considerations to CPAP or BiPAP. 2. He clearly has increased respiratory events while supine. It is advised that he avoid sleeping in the supine position. 3. Weight loss is advised in light of the elevation of body mass index at 31.33.
== END | disposition home or self-care (01) ==
LOC: C.NEUR 21:00
PROVIDERS: ATTEND Internal Medicine Pulmonary Disease
DX: G47.33 Obstructive sleep apnea (adult) (pediatric) (principal)

== ENCOUNTER → 2018-03-26 | Outpatient (CLI) | payer BC, OTHER ==
--- NOTE | 2018-03-27 06:06 | PAP/PSG TECHNICIAN REPORT ---
[facility] Securities Supervisor Polysomnogram Report Study name: None Report date: 03/27/2018 Study date: 03/26/2018 Referring Physician: Dr. Kellogg Name: JUVENAL THAKUR JR. Interpreting Physician: Sanjeev Kellogg D.O. Date of : 1940 Securities Supervisor: JESSE Robb. Sex: Male Age: 78 StudyType: PSG PAP Weight: 231 lbs Height: 78 years, Height 6' 0" Neck Circum:16.5inches BMI: 31.33 Medications: Vit B 12 Patient History Study started on room air with 4cwp cpap in room #6. 78 yr old male here tonight for a new titration study. He had a diagnostic psg done here on 03/10/18 that had an AHI of 24.6. He did not tolerate cpap in the past so order states to try Bi-pap if cpap is not tolerated. His ESS=6/24. Neck circ=16.5inches. Parameters Monitored NPSG: E1-M2, E2-M1, Fp1-M2, Fp2-M1, F3-M2, F4-M2, F4-M1, C3-M2, C4-M2, C4-M1, O1-M2, O2-M2, O2-M1, T3-M2, T4-M1, P3-M2, P4-M1, CHIN1, CHIN2, HR, EKG, Legs, PFLOW, SNOR, FLOW, CFLOW, Tidal Volume, THOR, ABDO, SpO2, PLTH, CPRESS, ETCO2 Wave, ETCO2, pH Sleep Architecture Sleep Stages Time at Lights Off 10:30:23 PM STAGES Time (min.) TST (%) Time at Lights On 5:44:53 AM Wake 224.5 -- Total Recording Time (TRT) 434.50 min. N1 31.5 15 Total Sleep Period (TSP) 417.0 min. N2 78.0 37 Total Sleep Time (TST) 210.0min. N3 40.5 19 Awake Time 224.5 min. REM 60.0 29 Wake after Sleep Onset 207.0 min. Sleep Efficiency (SE) 48 % Sleep Onset Latency (KAMERON) 17.5 min. Number of Stage 1 Shifts None Awakenings 36 Stage Changes 115 Number of REM periods 6 REM 60.0 29 REM Latency 107.5 min. NREM 150.0 71 Body Position Analysis Supine Right Left Side Prone Vertical Total Sleep Time (min.) 191.2 122.5 0.0 122.50 0.0 0.0 Total Sleep Time (%) 42% 58% 0% 58 0% N/A% Total Sleep Time REM (min.) 16.0 44.0 0.0 None 0.0 0.0 Total Sleep Time NREM (min.) 71.5 78.5 0.0 None 0.0 0.0 Intermittent Wake (min.) 103.7 120.8 0.0 None 0.0 0.0 Total Sleep Period (%) 42% None None None None None Arousals Myoclonus (PLM) * Events Count Index Events Count Index Spontaneous 18 5 Events Awake (PLMW) 247 66.0 Respiratory 18 9.7 Events Asleep w/ Arousal (PLMA) 5 1.4 PLM 5 1 Events Asleep w/o Arousal (PLMS) 35 10.0 Snoring 0 0 Total Asleep 40 11.4 Total 41 12 Total 287 40 Respiratory Analysis * CA OA MA CH H RERA Total Count 22 16 3 0 9 3 50 Index 6.3 4.6 0.9 0 2.6 1 15.1 Mean Duration 19.9 26.4 41.9 0.00 28.8 29.5 25.2 Longest Duration 34.1 41.1 47.8 0.00 47.8 40.9 50.0 Respiratory Event Summary Total Supine ~Supine Right Left Prone REM NREM Apneas Count 41 28 13 13 N/A N/A 0 41 Index 11.7 19 6 6.4 N/A N/A 0 16 Hypopneas (4% Desat) Count 9 4 5 5 N/A N/A 0 9 Index 2.6 2.7 2 2.4 N/A N/A 0.0 3.6 Apneas & All Hypopneas Count 50 32 18 18 N/A N/A 0 50 Index 14.3 22 9 9 N/A N/A 0.0 20.0 Respiratory Events (Clinical Nursing Director+All Hyp+RERA) Count 50 35 18 18 N/A N/A 0 50 Index 15.1 24 9 8.8 N/A N/A 0.0 21.2 Respiratory Related Arousal Count 18 35 8 8 N/A N/A 0 34 Index 9.7 18 4 4 N/A N/A 0 14 Snoring Analysis Supine Right Left Prone REM NREM Total Snore duration 1.1 min Snores count 13 9 N/A N/A 6 16 22 Snore mean duration 3.1 Sec Snores index 9 4 N/A N/A 6.0 6.4 6.3 TST with snoring (%) 0.5% Desaturation Event Summary: Minimum %SpO2 Event Count Mean/Min/Max Duration(sec.) Desaturation Index % Time In Bed > 90 35 39.0 / 14.0 / 59.8 5.4 91.5 86 - 90 11 21.9 / 13.8 / 30.3 19.4 8.0 81 - 85 0 N/A 0.0 0.5 76 - 80 0 N/A 0.0 0.0 71 - 75 0 N/A 0.0 0.0 66 - 70 0 N/A 0.0 0.0 61 - 65 0 N/A 0.0 0.0 56 - 60 0 N/A 0.0 0.0 51 - 55 0 N/A 0.0 0.0 < 50 0 N/A 0.0 0.0 Total REM NREM Awake <50% 0.0 min. 0.0 min. 0.0 min. 0.0 min. 51 - 60% 0.0 min. 0.0 min. 0.0 min. 0.0 min. 61 - 70% 0.0 min. 0.0 min. 0.0 min. 0.0 min. 71 - 80% 0.0 min. 0.0 min. 0.0 min. 0.0 min. 81 - 90% 36.3 min. 0.0 min. 26.8 min. 9.5 min. 91 - 100% 390.6 min. 60.0 min. 123.1 min. 207.5 min. Average 94 94 93 94 Minimum SpO2 82 91 82 83 Desaturation Event Index 5.7 0.0 11.2 4.5 # Desat. Events below 89% 18 N/A 14 4 Time(%) with Saturation below 89% 2.4 0.0 1.5 0.9 Time(min.) with Saturation below 89% 10.1 0.0 6.2 3.9 Time (mins) REM (mins) NREM (mins) % of TST SpO2 Below 90% 22 N/A N22 4.9 SpO2 Below 88% 4 0 0 1 Heart Rate Analysis Min (bpm) Max (bpm) Average (bpm) Awake 57 214 62 NREM 55 78 61 REM 57 73 64 Overall 55 78 61 Supplemental O2 Values Minimum O2 level: None Value Start Time End Time Securities Supervisor Comments Mr. Thakur slept in the right and supine positions. No cardiac arrhythmia noted. Some leg movements were noted. No bruxism noted. CPAP was initiated at +4 CMH2O and ended with a setting of +[id number]. He was switched to bi-pap once when he complained of the pressure (it was a setting of 6cwp) but he did not like bi-pap and asked to be switched back to cpap. At a setting of cpap +14 (while supine) he asked to have the pressure turned down to +11 and he rolled to his side. A large Simplus full face mask by Naila was used during titration. He did not use the restroom during the night. He stated that he slept worse than when at home. An optimal pressure was not achieved. The final report will be interpreted and signed by a sleep physician. The completed physician report will then be placed in the patient medical record. Therapy Event: Therapy (cm H20) 4 6 8 10 11 12 14 Total Time at Pressure (min.) 23.2 57.2 81.0 38.7 188.1 24.4 21.9 TST at Pressure (min.) 3.7 6.7 56.1 10.0 115.5 16.5 1.5 # Periods 1 1 1 1 1 1 1 Sleep Onset (min.) 17.5 0.0 0.0 8.1 56.1 1.4 0.0 REM Onset (min.) N/A N/A 44.6 N/A 70.1 N/A N/A Sleep Efficiency % 16 11 69 25 61 67 6 Wakefulness (%) 83.9 88.3 30.7 74.1 38.6 32.4 93.1 Wakefulness (min.) 19.5 50.5 24.9 28.7 72.6 7.9 20.4 NREM 1 (%) 8.6 5.2 1.2 14.2 6.9 26.6 2.3 NREM 1 (min.) 2.0 3.0 1.0 5.5 13.0 6.5 0.5 NREM 2 (%) 7.5 6.4 28.5 11.6 18.1 40.9 4.6 NREM 2 (min.) 1.7 3.7 23.1 4.5 34.0 10.0 1.0 NREM 3 (%) 0.0 0.0 26.5 0.0 10.1 0.0 0.0 NREM 3 (min.) 0.0 0.0 21.5 0.0 19.0 0.0 0.0 REM (%) 0.0 0.0 13.0 0.0 26.3 0.0 0.0 REM (min.) 0.0 0.0 10.5 0.0 49.5 0.0 0.0 # Arousals 3 5 4 4 12 12 1 Arousal Index 48.1 45.0 4.3 24.0 6.2 43.7 39.6 # Snore 1 2 1 0 13 2 3 Snore Index 16.0 18.0 1.1 0.0 6.8 7.3 118.7 AHI 96.2 81.0 8.6 60.0 1.6 47.3 39.6 AHI Supine 96.2 0.0 120.0 84.0 3.0 47.3 39.6 AHI Non-Supine N/A 84.2 6.5 36.0 0.0 N/A N/A NREM AHI 96.2 81.0 10.5 60.0 2.7 47.3 39.6 REM AHI N/A N/A 0.0 N/A 0.0 N/A N/A RDI 112.3 81.0 8.6 60.0 2.6 47.3 39.6 # Obstructive 2 2 0 5 1 6 0 # Central Ap 3 7 4 3 1 4 0 # Mixed 0 0 0 0 0 2 1 # Hypopneas 1 0 4 2 1 1 0 RERAS 1 0 0 0 2 0 0 Total Respiratory Events 7 9 8 10 5 13 1 Time Below SpO2 89.00% (min.) 0.3 2.5 3.4 0.0 0.0 0.0 0.0 Mean NREM SpO2 (%) 91 89 91 93 94 94 94 Mean REM SpO2 (%) N/A N/A 92 N/A 94 N/A N/A Mean Sleep SpO2 (%) 91 89 91 93 94 94 94 Min NREM SpO2 (%) 88 82 84 90 92 90 90 Min REM SpO2 (%) N/A N/A 91 N/A 93 N/A N/A Position Supine (min.) 3.7 0.3 1.0 5.0 59.5 16.5 1.5 Position Non-supine (min.) 0.0 6.4 55.1 5.0 56.0 0.0 0.0 LM Index Sleep 0.0 27.0 5.3 24.0 9.4 29.1 79.1 LM Index NREM 0.0 27.0 6.6 24.0 5.5 29.1 79.1 LM Index REM N/A N/A 0.0 N/A 14.5 N/A N/A Mean Heart Rate (bpm) 62 59 60 60 62 61 62 Min Heart Rate (bpm) 59 57 55 58 57 57 59
--- NOTE | 2018-03-30 14:44 | POLYSOMNOGRAPH REPORT ---
CLINICAL DATA: The patient is an 78-year-old male with a history of observed apneas and relatively recent change in mental status and cognition. He previously had sleep apnea diagnosed in 2004, but did not do well with nasal CPAP. He underwent a diagnostic sleep study on 03/10/2018. His apnea hypopnea index was elevated at 24.6. He is referred back to the sleep disorder center for a titration study. SLEEP ARCHITECTURE: The total sleep period was 417 minutes. The total sleep time is 210 minutes. The sleep efficiency is severely reduced to 48%. Sleep latency was 17.5 minutes. Wake after sleep onset was elevated at 207 minutes. REM latency was 107.5 minutes. There were 3 REM periods during the night, all of which were short in length. Sleep consisted of stage N1 15%, stage N2 37%, stage N3 19%, stage REM 29%. AROUSAL DATA: The patient had a total of 41 arousals including 18 spontaneous, 18 respiratory, and 5 PLM arousals. The arousal index was 12. PLM DATA: The patient had 40 periodic limb movements for a PLM index of 11.4. There were 5 arousals, associated with limb movements for a PLM arousal index of only 1.4. EKG: The underlying cardiac rhythm was normal sinus. The cardiac rates ranged from 55-78 beats per minute with an average of 61 beats per minute. No cardiac arrhythmia noted. LOCKSTITCH CUP SETTER COMMENTS: Mr. Thakur slept in the right and supine positions. No cardiac arrhythmia noted. Some leg movements noted. No bruxism noted. CPAP was initiated at 4 cm and ended with a setting of 11 cm. He was switched to BiPAP once when he complained of the pressure, but he did not like BiPAP and asked to be switched back to CPAP. At a setting of 14 cm while supine, he asked to have the pressure turned down to 11 and he rolled on his side. A large Simplus full face mask by Naila was used during titration. He did not use the restroom during the night. He stated that he slept worse than when at home. An optimal pressure was not achieved. IMPRESSION: Obstructive sleep apnea - difficulty tolerating nasal CPAP or BiPAP. COMMENTS: The patient had marked difficulty sleeping. He did sleep well after 3:35 a.m. He had few events after that. His CPAP at that point was set at 11. Overall, his sleep efficiency was poor. In light of the lack of resolution of sleep disordered breathing, a trial of auto CPAP would be advised. RECOMMENDATIONS: 1. It is advised that he be given a trial of auto CPAP with a minimum pressure of 8 and a maximum of 16. 2. Weight loss is advised in light of the elevation of body mass index at 31.3. 3. If possible, the patient should avoid sleeping in the supine position. There were typically more snoring and respiratory events while supine. 4. Clinical followup is required to evaluate his response to nasal CPAP therapy.
== END | disposition home or self-care (01) ==
LOC: C.NEUR 21:00
PROVIDERS: ATTEND Internal Medicine Pulmonary Disease
DX: G47.33 Obstructive sleep apnea (adult) (pediatric) (principal)

== ENCOUNTER 2020-05-03 05:15 | Observation (INO) ==
--- NOTE | 2020-04-08 13:53 | PAT Medication Instructions ---
Medication Instructions Date of Service April 08, 2020 Home Medications Medication Instructions Recorded sildenafil 100 mg tablet 100 mg PO DAILY PRN #6 tab 04/28/19 sildenafil 100 mg tablet 100 mg PO DAILY PRN gabapentin 100 mg capsule 100 mg PO HS gabapentin 400 mg capsule 400 mg PO BID cholecalciferol (vitamin D3) [Vitamin D3] 25 mcg PO HS cyanocobalamin (vitamin B-12) 500 mcg PO HS gabapentin [Neurontin] 400 mg PO HS DO NOT take the morning of surgery sildenafil 100 mg tablet 100 mg PO DAILY PRN Take morning of surgery With a small sip of water, OTHERWISE NOTHING TO EAT OR DRINK AFTER MIDNIGHT: gabapentin 400 mg capsule 400 mg PO BID Take evening before surgery sildenafil 100 mg tablet 100 mg PO DAILY PRN (if needed) gabapentin 100 mg capsule 100 mg PO HS gabapentin 400 mg capsule 400 mg PO BID cholecalciferol (vitamin D3) [Vitamin D3] 25 mcg PO HS cyanocobalamin (vitamin B-12) 500 mcg PO HS gabapentin [Neurontin] 400 mg PO HS Other Notes If you have any questions please call us at [phone] or [phone] or [phone] or [phone]
--- NOTE | 2020-04-11 15:07 | Anesthesiology Consultation ---
Date of Service April 11, 2020 Assessment & Plan (1) Encounter for pre-operative examination: Chart Review Chart Review: Pending: Refer to Additional Notes / Consult section (pending surgeon ordered PCP clearance 04/27, previous cardio testing (specifically ECHO), preop Covid test ) and Patient seen in Pre Admission Testing Pt prefers GA over SAB. SAB usually causes rigidity and increased pain Awaiting surgeon ordered PCP clearance scheduled 04/27/20. Will also inquire about any recent ECHO or cardio testing secondary to murmur. Per PAT appt on 04/11/20, pt resides in [facility]. Denies recent travel. Wears mask in public. Scheduled for preop Covid testing 04/27/20. Educated on importance of self quarantining, social distancing and wearing mask in public both for the patient and household contacts. Teaching & Discussion Pre-Anesthesia Teaching/Discussion Notes: Instructed NPO after midnight before surgery,except medications with 15 cc of water. Medication instructions provided according to the PAT guidelines. History Surgery Operation Date: 05/03/20 07:00 Proposed Procedures p Right Total Knee Arthroplasty - Prakash Leatha Velásquez MD Height/Weight Height: 5 ft 11.5 in Weight: 103.8 kg Allergies Allergy/AdvReac Type Severity Reaction Status Date / Time Iodinated Contrast Media Allergy Intermediate HIVES,HOT Verified 04/06/20 07:36 FLUSHED FEELING iodine Allergy Intermediate HIVES, HOT Verified 04/06/20 07:36 FLASHES WITH IV DYE NO PROBLEM WITH TOPICAL prednisone AdvReac Severe PSYCHOSIS Verified 04/06/20 07:36 Medications Home Medications Medication Instructions Recorded Confirmed Last Taken sildenafil 100 mg tablet 100 mg PO DAILY PRN #6 tab 04/28/19 04/06/20 Unknown gabapentin 100 mg capsule 100 mg PO HS 06/15/19 04/06/20 Unknown gabapentin 400 mg capsule 400 mg PO BID 06/15/19 04/06/20 Unknown cholecalciferol (vitamin D3) 25 mcg PO HS 04/06/20 04/06/20 Unknown [Vitamin D3] cyanocobalamin (vitamin B-12) 500 mcg PO HS 04/06/20 04/06/20 Unknown gabapentin [Neurontin] 400 mg PO HS 04/06/20 04/06/20 Unknown Past Medical History Medical History (Updated 04/12/20 @ 08:49 by Yasmeen Montero PA-C) BPH (benign prostatic hyperplasia) Chronic back pain GERD (gastroesophageal reflux disease) Stable and controlled Glaucoma Follows with eye doctor routinely History of DVT (deep vein thrombosis) Around 2006- on AC- has since d/c'ed- no issues since that time Hyperglycemia No history of DM per patient Hyperlipidemia Hypomania Hx of --no meds currently- seen by neuro- unremarkable MRI of brain and labs- referred to neuropsych Idiopathic thrombocytopenic purpura (02/10/13) S/p splenectomy. Stable- follows with PCP Liver mass Found incidentally on scan per patient Memory loss Seen by neuro in the past- work up negative- referred to neuropsych Neuropathy involving both lower extremities Obstructive sleep apnea of adult No device - has lost weight recently - no recent sleep study Poor historian Pt poor historian with medical conditions and dates Exercise / Class Metabolic Activity III < 4 Walking/Shop/Light housework (one flight of stairs- no chest pain- mild SOB) Past Family History Family History Mother Cancer Father Cancer Hypertension Brother Hypertension Unknown Heart disease Sister Family history of diabetes mellitus Sister Family history of diabetes mellitus Other No family history of adverse response to anesthesia Past Surgical History Surgical History History of basal cell carcinoma (BCC) excision off nose History of bilateral cataract extraction History of cholecystectomy History of colonoscopy History of esophagogastroduodenoscopy (EGD) History of hernia surgery pt states he has had 14 hernia sx History of lumbar discectomy History of splenectomy History of tooth extraction History of transurethral resection of prostate Hx of vasectomy S/P insertion of IVC [place]inferior v[place]al[place] [facility] [place] S/P orchiectomy right Past Anesthesia History No Hx of Anesthesia Complications (ISSUES WITH SAB- CAUSES RIGIDITY AND INCREASED PAIN ) and No Family Hx of Anesthesia Complications History of PONV No Hx of PONV and No Hx of Motion Sickness Social History Smoking Status: Former smoker Do You Dip or Chew Tobacco: No (quit when he was young) Smoking End Date: quit 50 yrs ago Hx Alcohol Use: Yes Alcohol type: beer and wine alcohol intake frequency: other Alcohol Intake Frequency Comment: 1 beer/wine every week or 2 weeks Hx Substance Use: No substance use type: does not use Review of Systems H/o platelet transfusion Patient denies chest pain, shortness of breath, dyspnea on exertion, cough, wheezing, palpitations. No hx of seizures, stroke, [place]. Physical Exam Vital Signs VITALS BP 146/81 P 68 TEMP 98.5 SP02 96% RESP 16 Constitutional no acute distress ENMT Mouth: no TMJ clicking Thyromental Distance: > or= 3.5 Finger Breadths (3.5) Mallampati Class: I Top partial denture Bottom molars missing. Missing top molars Neck + limited neck extension Respiratory normal respiratory effort; no respiratory distress Auscultation: lungs clear to auscultation bilaterally; no wheezes Cardiovascular Rate/Rhythm: regular rate and regular rhythm Heart Sounds: + murmur (II/ murmur ) Vessels: no carotid bruit Heart sounds diminished Musculoskeletal Spine: normal cervical ROM Neurologic moves all extremities Psychiatric Orientation: alert Testing Laboratory Results 04/11/20 15:20 04/11/20 15:20 PT 11.3 Seconds (9.0-12.0) 04/11/20 15:20 INR 1.1 (0.9-1.1) 04/11/20 15:20 APTT 29.9 Seconds (21.0-31.0) 04/11/20 15:20 Blood Type A Positive 04/11/20 15:20 Antibody Screen NEGATIVE 04/11/20 15:20 Electrocardiogram Date: 04/11/20 Findings: + no change from (October 24, 2017 per cardio ) SR with 1st degree AVB at 63 bpm.
--- NOTE | 2020-04-11 15:37 | Electrocardiogram Report ---
Test Reason : Blood Pressure : / mmHG Vent. Rate : 063 BPM Atrial Rate : 063 BPM P-R Int : 216 ms QRS Dur : 106 ms QT Int : 432 ms P-R-T Axes : 059 036 054 degrees QTc Int : 442 ms Sinus rhythm with 1st degree A-V block Otherwise normal ECG When compared with ECG of 24-OCT-2017 19:24, No significant change was found Confirmed by Polo Caceres ([id number]) on 04/11/2020 3:37:16 PM Referred By: Prakash Velásquez Confirmed By:Polo Caceres
[2020-04-11 15:54] LABS: Basophils # (auto) 0.03 K/uL (0-0.2); Basophils % (auto) 0.5 %; Eosinophils # (auto) 0.25 K/uL (0-0.5); Eosinophils % (auto) 3.8 %; Hematocrit (blood only) 42.9 % (42-52); Hemoglobin 14.9 g/dL (14.0-18.0); Immature Granulocytes # (auto) 0.02 K/uL (0.00-0.02); Immature Granulocytes % (auto) 0.3 %; Lymphocytes # (auto) 1.96 K/uL (1.2-3.4); Mean Corpuscular Hemoglobin 31.4 pg (25-34); Mean Corpuscular Hgb Conc 34.7 g/dL (32-36); Mean Corpuscular Volume 90.3 fL (80-100); Mean Platelet Volume 9.9 fL (7.4-10.4); Monocytes # (auto) 0.78 K/uL (0.11-0.59); Monocytes % (auto) 11.9 %; Neutrophils % (auto) 53.5 %; Platelet Count 230 K/uL (130-400); RDW Coefficient of Variation 13.7 % (11.5-14.5); RDW Standard Deviation 45.7 fL (36.4-46.3); Red Blood Count 4.75 M/uL (4.7-6.1); White Blood Count 6.54 K/uL (4.8-10.8)
[2020-04-11 16:01] LABS: Albumin Level 3.8 gm/dl (3.4-5.0); BUN Creatinine Ratio 22.8 (10-20); Bilirubin Direct 0.2 mg/dl (0-0.2); Calcium 9.4 mg/dl (8.5-10.1); Creatinine Clr Calc Pharmacy 73.3 ml/min; Est GFR (Non-African American) 73.3; Potassium 4.3 mmol/L (3.5-5.1)
[2020-04-11 16:04] LABS: Bilirubin,Total 0.5 mg/dl (0.2-1); Total Protein 7.6 gm/dl (6.4-8.2)
[2020-04-11 16:12] LABS: INR 1.1 (0.9-1.1); Partial Thromboplastin Ratio 1.1; Partial Thromboplastin Time 29.9 Seconds (21.0-31.0); Prothrombin Time 11.3 Seconds (9.0-12.0)
[2020-05-03] MEDS ORDERED: TRANEXAMIC ACID 1,000 MG **IV Pre-op IV SCH (06:00)
[2020-05-03] MEDS ORDERED: CEFAZOLIN 2000MG 2,000 MG/15 ML SYR IV SCH (06:00)
[2020-05-03] MEDS ORDERED: LR 60ML/HR IV SCH (06:00)
[2020-05-03] MEDS ORDERED: CeleBREX 200 MG CAP PO SCH (06:00)
[2020-05-03] MEDS ORDERED: ROPIVACAINE 0.5% HCL/PF 150 MG, BUPIVACAINE 0.5% MPF 30 ML, EPINEPHrine 0.15 MG, Ketoro... INFIL SCH (06:00)
[2020-05-03] MEDS ORDERED: TRANEXAMIC ACID 1,000 MG **IV Intra-op IV SCH (06:00)
[2020-05-03] MEDS ORDERED: LR 15ML/HR IV SCH (06:00)
[2020-05-03] MEDS ORDERED: BUPIVACAINE 0.5 % 5 MG/1 ML PF 10ML VIAL ONE (06:22)
[2020-05-03] MEDS ORDERED: ROPIVACAINE 0.5% 5 MG/ML 30 ML VIAL ONE (06:23)
[2020-05-03] MEDS ORDERED: EPINEPHrine INJ 1 MG/ML AMP ONE (06:23)
[2020-05-03] MEDS ORDERED: ONDANSETRON INJ 2 MG/ML 2 ML VIAL IV PRN ×2 (06:52→10:48)
[2020-05-03] MEDS ORDERED: ePHEDrine sulfate 50 MG/ML AMP IV PRN (06:52)
[2020-05-03] MEDS ORDERED: MEPERIDINE HCL 25 MG/ML CARP/VIAL IV PRN (06:52)
[2020-05-03] MEDS ORDERED: PHENYLEPHRINE 100MCG/ML 5ML SYR IV PRN (06:52)
[2020-05-03] MEDS ORDERED: LABETALOL HCL IV 5 MG/ML 20ML IV PRN (06:52)
[2020-05-03] MEDS ORDERED: fentaNYL citrate 100 MCG/2 ML VIAL IV PRN (06:52)
[2020-05-03] MEDS ORDERED: ATROPINE SULFATE 0.1 MG/ML 10ML SYR IV PRN (06:52)
[2020-05-03] MEDS ORDERED: TXA 10% Non-IV Routes 100 MG/ML VIAL TOP ONE (06:54)
[2020-05-03] MEDS ORDERED: MIDAZOLAM HCL 1 MG/ML 2ML VIAL ONE (06:56)
--- NOTE | 2020-05-03 06:56 | History & Physical Bridge Note ---
Date of Service May 03, 2020 History & Physical Bridge Note I have examined the patient, reviewed the History & Physical and in the interval since the performance of the History & Physical I have noted the following changes of clinical significance: no changes noted Patient is aware of the risks, is asymptomatic and tested negative for COVID-19.
[2020-05-03] MEDS ORDERED: ORTHO JOINT ANESTHETIC ONE (06:59)
[2020-05-03] MEDS ORDERED: TRANEXAMIC ACID 1,000 MG in 0.9 % SODIUM CHLORIDE 100 ML TOP SCH (07:00)
[2020-05-03] MEDS ORDERED: LIDOCAINE HCL 2% 2 ML VIAL/AMP(20MG/ML) INFIL ONE (07:43)
[2020-05-03] MEDS ORDERED: PROPOFOL IV EMULSION 10 MG/ML 20 ML VIAL IV ONE ×3 (07:43→09:45)
[2020-05-03] MEDS ORDERED: ePHEDrine sulfate 50 MG/ML SYR ONE (07:52)
--- NOTE | 2020-05-03 10:32 | Operative Report ---
Post Operative Report Pre & Post Diagnosis Operation Date: 05/03/20 07:15 Pre-Op Diagnosis: Right Knee Osteoarthritis Post-Op Diagnosis: Right Knee Osteoarthritis I identified the patient and participated in the time-out.: Yes Procedure Operation Date: 05/03/20 07:15 Actual Procedures p Right Total Knee Arthroplasty(Right) - Prakash Velásquez MD Surgeon Prakash Velásquez MD It Risk Analyst Storm Hickman PA-C & Brady Stoddard MS IV Estimated Blood Loss 100 Findings See Below Examined Under Anesthesia: ROM -- There was 10 degrees to 125 degrees of flexion Ligamentous examination -- revealed stable Logan, posterior drawer, varus and valgus stress at 10 and 30 degrees. [place] Type IV changes of Medial compartment, Type II changes of the Lateral compartment, Type III changes of the Patellofemoral compartment. Fluids 1300 cc Specimens Right knee contents Anesthesia Type MAC Spinal Regional Complications none Indications This is a 80-year-old male who has clinical and radiographic findings consistent with osteoarthritis of the a right knee. I recommended that a right total knee replacement be performed. The patient understands the risks of surgery, which include but not limited to: bleeding, infection, re-operation, damage to nerves and arteries, continued knee pain, knee stiffness, DVT, and . The patient understands all of these instructions and explanations, all of his questions have been satisfactorily addressed and the patient has elected to proceed. Informed consent was signed. Description of Procedure IMPLANTS: 1. Femur: Triathlon #8 Right PS. 2. Tibia: Triathlon #7 [place]. 3. Insert: Triathlon #7 x 13 mm PS X3 poly. 4. Patella: Triathlon A40 x 11 mm X3 poly. 5. Simplex cement. Kristin Hickman PA-C is assisting with positioning , retracting, and closure due to fellow not available. PROCEDURE: The patient was taken to the Operating Room and placed in the supine position after spinal and adductor canal nerve block was administered. My initials and a multidisciplinary time-out were used to identify the right leg as the correct operative limb. A tourniquet was placed high in the thigh. Prior to the incision, 2 grams of intravenous Ancef were given. The right leg was then prepped and draped in a standard sterile fashion. An Esmarch was used to exsanguinate the leg and the tourniquet was inflated to 250 mmHg. The planned mid-line 20 cm incision was created exposing the extensor mechanism. The medial parapatellar arthrotomy was made and the patella was everted. The patella was addressed first. It was prepared by reaming from 26 mm down to 15 mm. An A40 button was found to fit best. The peg holes were made in the standard fashion. The femur was addressed next and the guide lorena was placed intramedullary. The initial cutting block was placed with 5 degrees of valgus and removing 10 mm for the distal cut. The cut was made and the 4-in-1 cutting block for a size 8 femur was placed. These cuts and the cuts to place the box were made in the standard fashion. Our attention was then drawn to the tibia cut with the external cutting guide, taking 4 mm from the medial low side. There was sufficient extension and flexion gap to fit a 13 mm spacer. A #7 Tibial baseplate fit well. A trial with a 13 mm spacer showed excellent stability in both flexion and extension, with good ligament balance. Range of motion of 0-125 degrees. The tibial baseplate was pinned and the final preparation for the keel and stem was made. All the trial components were tested again, with good stability and thumbs free tracking of the patella. All components were removed. The tourniquet was deflated. Hemostasis was obtained. 90 ml of total knee cocktail were injected into the soft tissues and periosteum. A bone plug was placed in the femur and covered with bone wax. After a 19 minute break, the limb was exsanguinated again and the tourniquet was re-inflated. All surfaces were copiously irrigated prior to placement of the components. The femoral component and Tibial baseplate were placed with the first batch of cement and a 13 mm trial placed. During the second batch of cement the patellar button was placed using Simplex cement. Again with the 13 mm trial poly the range of motion and stability were excellent and unchanged. Once the cement had cured, the 13 mm X3 poly was placed. The extensor mechanism was closed with 1-0 and 0 Vicryl with the knee bent approximately 60 degrees in a standard fashion. The peritenon and deep fascia was closed with 2-0 Vicryl. The subcutaneous layer was closed with 3-0 Vicryl. The skin was closed with Zipline and shield. The limb was cleaned and dried. 4x4 dressing was placed over top followed by ABDs, sterile Webril, and a foot t o thigh Yohan bandage. The patient was then transferred to the Recovery Room in stable condition. The sponge and needle counts were correct. POST-OP INSTRUCTIONS: The patient will be WBAT. The patient will be admitted to the hospital. The patient will use the knee immobilizer when ambulating and standing until good quad control is achieved. Labs will be obtained during the stay. DVT prophylaxis will included Lovenox (Starting tomorrow am) 30mg BID for 3 weeks followed by aspirin for another 3 weeks, TEDs for 3 weeks, and mechanical foot pumps while in the hospital. The dressing will be changed prior to their discharge or postop day #2 and covered with a Silverlon dressing, whichever comes first. I attest to the content of the Intraoperative Record and any orders documented therein. Any exceptions are noted below.
--- NOTE | 2020-05-03 10:32 | Post Operative Brief Note ---
Immediate Post Op Note v1 Date of Surgery May 03, 2020 Pre & Post Diagnosis Operation Date: 05/03/20 07:15 Pre-Op Diagnosis: Right Knee Osteoarthritis Post-Op Diagnosis: Right Knee Osteoarthritis I identified the patient and participated in the time-out.: Yes Procedure Operation Date: 05/03/20 07:15 Actual Procedures p Right Total Knee Arthroplasty(Right) - Prakash Velásquez MD Surgeon Prakash Velásquez MD Director Of Dementia Operations Storm Hickman PA-C & Brady Stoddard MS IV Estimated Blood Loss 100 Findings Consistent with Post-Op Diagnosis Fluids 1300 cc Specimens Right knee contents Anesthesia Type MAC Spinal Regional Complications none
[2020-05-03] MEDS ORDERED: MAGNESIUM HYDROXIDE SUSP 30 ML UDC PO PRN (10:48)
[2020-05-03] MEDS ORDERED: ALUMINUM/MAGNESIUM SUSP 30 ML UDC PO PRN (10:48)
[2020-05-03] MEDS ORDERED: DiphenhydrAMINE HCL 50 MG/ML VIAL IV PRN (10:48)
[2020-05-03] MEDS ORDERED: NALOXONE HCL 0.4 MG/1 ML VIAL/CARP IV PRN (10:48)
[2020-05-03] MEDS ORDERED: bisacodyL 10 MG SUPP PR PRN (10:48)
[2020-05-03] MEDS ORDERED: METOCLOPRAMIDE HCL INJ 5 MG/ML 2 ML VIAL IV PRN (10:48)
--- NOTE | 2020-05-03 10:50 | Operative Report ---
Post Operative Report Pre & Post Diagnosis Operation Date: 05/03/20 07:15 Pre-Op Diagnosis: Right Knee Osteoarthritis Post-Op Diagnosis: Right Knee Osteoarthritis I identified the patient and participated in the time-out.: Yes Procedure Operation Date: 05/03/20 07:15 Actual Procedures p Right Total Knee Arthroplasty(Right) - Prakash Velásquez MD Surgeon Prakash Velásquez MD Shaker Repairer Storm Hickman PA-C & Brady Stoddard MS IV Estimated Blood Loss 100 Findings Consistent with Post-Op Diagnosis Specimens bone and soft tissue Complications none Indications See Dr Velásquez operative report. Description of Procedure See Dr Velásquez operative report. I was nurse first assist to include prepping, draping, limb an instrument handling, wound closure, dressings. I attest to the content of the Intraoperative Record and any orders documented therein. Any exceptions are noted below.
--- NOTE | 2020-05-03 10:59 | XRay Report ---
TWO VIEWS RIGHT KNEE CLINICAL HISTORY: Postoperative examination. FINDINGS: AP and crosstable lateral portable views of the right knee are obtained. A right knee arthr oplasty is in near anatomic alignment. There has been undersurface remodeling of the patella. No acut e fracture is seen. There are expected postoperative changes around the knee including soft tissue ed neri and subcutaneous gas. IMPRESSION: Expected postoperative changes status post right knee arthroplasty. No acute fracture is seen. ACT 112: Negative or not required by law. Electronically signed by: Petros Montiel M.D. 05/03/2020 10:58 AM
--- NOTE | 2020-05-03 11:03 | Anesthesiology Progress Note ---
Date of Service May 03, 2020 Anesthesia Post Procedure Vital Signs Vital Signs: Temp Pulse Pulse Resp BP BP Pulse Ox 05/03/20 10:55 63 17 107/59 L 96 05/03/20 10:45 70 20 95/59 L 96 05/03/20 10:39 36.4 C L 73 17 104/56 L 94 05/03/20 06:37 36.7 C 65 18 128/73 94 05/03/20 06:08 36.8 C 72 18 159/77 H 95 Pain Intensity Bilateral Leg: Pain Intensity: 2 Transfer of Care Handoff Completed per policy Notes Mental Status: alert / awake / arousable Patient Amnestic to Procedure: Yes Nausea / Vomiting: adequately controlled Pain: adequately controlled Airway Patency, RR, SpO2: stable & adequate BP & HR: stable & adequate Hydration State: stable & adequate Neuraxial Anesthesia: was administered and sensory block is resolving Anesthetic Complications: no major complications apparent and Pt Satisfied with anesthetic care
[2020-05-03] MEDS ORDERED: SODIUM CHLORIDE 0.9% 1000ML 1,000 ML IV SCH (12:00)
[2020-05-03] MEDS: OXYCODONE HCL IR 5 MG TAB (IMMEDIATE RELEASE) PO PRN ×2 (12:02→23:13)
--- NOTE | 2020-05-03 12:31 | Orthopedic Progress Note ---
Date of Service May 03, 2020 Assessment & Plan (1) Osteoarthritis of right knee: POD # 0 s/p R TKA, doing as well as expected. Resume diet. WBAT with walker, knee immobilizer for 48 hours or until demonstrates excellent quad control. OOB to chair. Continue pain control. Check labs tomorrow. DVT prophylaxis: TEDs 3 weeks, foot pumps while in hospital, Lovenox to start tomorrow a.m. 30 mg subcu twice daily followed by ASA 81 mg mg BID for another 3 weeks. PT/OT. D/C planning. Present on Admission?: Yes Admission and Anticipated Discharge Date Admission Date: May 03, 2020 Subjective Right knee pain Review of Systems Review of Systems: All systems reviewed & are unremarkable except as noted in HPI & below Physical Exam Physical Exam: RLE: Dressing is clean, dry, intact. Calf is soft and non- tender. Able to wiggle toes, ankle, and preform straight leg raise. Results & Data ([facility]) Vital Signs (Past 12 Hours) Vital Signs Temp Pulse Pulse Resp BP BP Pulse Ox 05/03/20 12:01 36.3 C L 60 16 135/76 98 05/03/20 11:30 36.4 C L 60 18 111/65 98 05/03/20 11:10 60 16 103/57 L 97 05/03/20 10:55 63 17 107/59 L 96 05/03/20 10:45 70 20 95/59 L 96 05/03/20 10:39 36.4 C L 73 17 104/56 L 94 05/03/20 06:37 36.7 C 65 18 128/73 94 05/03/20 06:08 36.8 C 72 18 159/77 H 95 Diagnostic Findings I reviewed the AP and lateral radiographs of the right knee, which show cemented components in excellent position following right TKA.
[2020-05-03] MEDS: HYDROmorphone INJ 0.5 MG/0.5 ML SYR IV PRN ×2 (12:52→18:20)
[2020-05-03] MEDS: ACETAMINOPHEN 500 MG TAB PO SCH ×2 (13:53→20:58)
[2020-05-03] MEDS: GABAPENTIN 400 MG CAP PO SCH ×2 (13:53→20:57)
[2020-05-03] MEDS: ASCORBIC ACID 500 MG TAB PO SCH (16:17)
[2020-05-03] MEDS: FERROUS GLUCONATE 324 MG TAB PO SCH (16:17)
[2020-05-03] MEDS: Scopolamine CHECK PATCH PLACEMENT SCH ×2 (16:18→23:12)
[2020-05-03] MEDS: CEFAZOLIN 2000MG 2,000 MG/15 ML SYR IV SCH ×2 (16:18→23:13)
[2020-05-03] MEDS: CHOLECALCIFEROL 1,000 UNITS 25 MCG TAB PO SCH (20:57)
[2020-05-03] MEDS: SENNA 8.6 MG TAB PO SCH (20:57)
[2020-05-03] MEDS: DOCUSATE SODIUM 100 MG CAP PO SCH (20:57)
[2020-05-03] MEDS: GABAPENTIN 100 MG CAP PO SCH (20:57)
[2020-05-03] MEDS: CYANOCOBALAMIN 500 MCG TABLET (VITAMIN B-12) PO SCH (20:58)
[2020-05-04] MEDS: OXYCODONE HCL IR 5 MG TAB (IMMEDIATE RELEASE) PO PRN ×2 (03:27→11:55)
[2020-05-04] MEDS: ACETAMINOPHEN 500 MG TAB PO SCH ×3 (05:09→21:04)
[2020-05-04 05:22] LABS: Hematocrit (blood only) 35.8 % (42-52); Mean Corpuscular Hemoglobin 30.1 pg (25-34); Mean Corpuscular Hgb Conc 33.5 g/dL (32-36); Mean Corpuscular Volume 89.7 fL (80-100); Mean Platelet Volume 9.6 fL (7.4-10.4); Platelet Count 233 K/uL (130-400); RDW Coefficient of Variation 13.4 % (11.5-14.5); RDW Standard Deviation 44.3 fL (36.4-46.3); Red Blood Count 3.99 M/uL (4.7-6.1); White Blood Count 12.58 K/uL (4.8-10.8)
[2020-05-04 05:46] LABS: BUN Creatinine Ratio 22.5 (10-20); Calcium 8.5 mg/dl (8.5-10.1); Creatinine Clr Calc Pharmacy 76.1 ml/min; Est GFR (African American) 90.6; Est GFR (Non-African American) 78.2
[2020-05-04] MEDS: DOCUSATE SODIUM 100 MG CAP PO SCH ×2 (09:15→20:59)
[2020-05-04] MEDS: GABAPENTIN 400 MG CAP PO SCH ×3 (09:15→21:03)
[2020-05-04] MEDS: MULTIVITAMIN TAB PO SCH (09:16)
[2020-05-04] MEDS: FERROUS GLUCONATE 324 MG TAB PO SCH ×2 (09:16→17:38)
[2020-05-04] MEDS: ASCORBIC ACID 500 MG TAB PO SCH ×2 (09:16→17:38)
[2020-05-04] MEDS: ENOXAPARIN INJ 30 MG/0.3 ML SYR SQ SCH ×2 (09:17→21:00)
[2020-05-04] MEDS: Scopolamine CHECK PATCH PLACEMENT SCH ×2 (09:18→16:05)
--- NOTE | 2020-05-04 10:50 | Orthopedic Progress Note ---
Date of Service May 04, 2020 Assessment & Plan (1) Osteoarthritis of right knee: POD # 1 s/p R TKA, doing as well as expected. Resume diet. WBAT with walker, knee immobilizer for 48 hours or until demonstrates excellent quad control. OOB to chair. completed Abx. Continue pain control. Labs WNL. DVT prophylaxis: TEDs 3 weeks, foot pumps while in hospital, Lovenox to start tomorrow a.m. 30 mg SubQ twice daily followed by ASA 81 mg mg BID for another 3 weeks. PT/OT. D/C planning. Re-eval in pm to see if stable for d/c home today or later. Admission and Anticipated Discharge Date Admission Date: May 03, 2020 Subjective Right knee pain, 03/28. Just took oral pain meds Review of Systems Review of Systems: All systems reviewed & are unremarkable except as noted in HPI & below Physical Exam Physical Exam: RLE: Dressing has minimal anticipated anterior bloody drainage, intact. Calf is soft and non-tender. Able to wiggle toes, ankle, and able to preform straight leg raise. Results & Data ([facility]) Vital Signs (Past 12 Hours) Vital Signs Temp Pulse Pulse Resp BP Pulse Ox 05/04/20 07:49 36.8 C 58 L 18 113/69 97 05/04/20 03:32 36.7 C 60 16 130/74 94 05/03/20 23:15 37.0 C 70 14 116/68 94 Laboratory Results 05/04/20 05/04/20 Range/Units 04:53 04:53 WBC 12.58 H (4.8-10.8) K/uL RBC 3.99 L (4.7-6.1) M/uL Hgb 12.0 L (14.0-18.0) g/dL Hct 35.8 L (42-52) % MCV 89.7 (80-100) fL MCH 30.1 (25-34) pg MCHC 33.5 (32-36) g/dL RDW Std Deviation 44.3 (36.4-46.3) fL RDW Coeff of Rajat 13.4 (11.5-14.5) % Plt Count 233 (130-400) K/uL MPV 9.6 (7.4-10.4) fL Sodium 137 (136-145) mmol/L Potassium 4.0 (3.5-5.1) mmol/L Chloride 105 (98-107) mmol/L Carbon Dioxide 28 (21-32) mmol/L Anion Gap 4.0 (3-11) BUN 20 H (7-18) mg/dl Creatinine 0.91 (0.6-1.4) mg/dl Est Cr Clr Drug Dosing 76.1 ml/min Est GFR ( Amer) 90.6 Est GFR (Non-Af Amer) 78.2 BUN/Creatinine Ratio 22.5 H (10-20) Glucose 109 H (70-99) mg/dl Calcium 8.5 (8.5-10.1) mg/dl
--- NOTE | 2020-05-04 15:17 | Orthopedic Progress Note ---
Date of Service May 04, 2020 Assessment & Plan (1) Osteoarthritis of right knee: POD # 1 s/p R TKA, doing as well as expected. Continue regular diet. WBAT with walker, knee immobilizer for 48 hours or until demonstrates excellent quad control. OOB to chair. completed Abx. Continue pain control. Patient requested one more dose of IV pain medication and then will rely on PO pain meds. Labs WNL. DVT prophylaxis: TEDs 3 weeks, foot pumps while in hospital (reapplied during my visit), continue Lovenox 30 mg SubQ twice daily x 3wks, to then be followed by ASA 81 mg mg BID for another 3 weeks. PT/OT. D/C planning. Plan to DC tomorrow to allow another session of PT and continued pain control. Admission and Anticipated Discharge Date Admission Date: May 03, 2020 Subjective Patient in bed. in room. Questioned DC today to home. States he prefers to stay another night for better post-op pain control. Had one session of PT. His pain is predominately in quad but at times feels shooting into calf. [place] weak with PT. Physical Exam Physical Exam: Sitting up in bed. Bilateral legs with earnestine hose. No foot pumps currently on. Right leg bandages intact. Dry blood noted anterior knee of ely approx quarter size. B LE NV intact with palpable DP and PT pulses. Sensation intact to feet. Able to wiggle toes and ankles. Right calf soft. Mild tender. Neg homans. Painless log rolling of right hip. Pain with gentle passive motion of knee. Results & Data ([facility]) Vital Signs (Past 12 Hours) Vital Signs Temp Pulse Pulse Resp BP Pulse Ox 05/04/20 07:49 36.8 C 58 L 18 113/69 97 05/04/20 03:32 36.7 C 60 16 130/74 94 Laboratory Results 05/04/20 05/04/20 Range/Units 04:53 04:53 WBC 12.58 H (4.8-10.8) K/uL RBC 3.99 L (4.7-6.1) M/uL Hgb 12.0 L (14.0-18.0) g/dL Hct 35.8 L (42-52) % MCV 89.7 (80-100) fL MCH 30.1 (25-34) pg MCHC 33.5 (32-36) g/dL RDW Std Deviation 44.3 (36.4-46.3) fL RDW Coeff of Rajat 13.4 (11.5-14.5) % Plt Count 233 (130-400) K/uL MPV 9.6 (7.4-10.4) fL Sodium 137 (136-145) mmol/L Potassium 4.0 (3.5-5.1) mmol/L Chloride 105 (98-107) mmol/L Carbon Dioxide 28 (21-32) mmol/L Anion Gap 4.0 (3-11) BUN 20 H (7-18) mg/dl Creatinine 0.91 (0.6-1.4) mg/dl Est Cr Clr Drug Dosing 76.1 ml/min Est GFR ( Amer) 90.6 Est GFR (Non-Af Amer) 78.2 BUN/Creatinine Ratio 22.5 H (10-20) Glucose 109 H (70-99) mg/dl Calcium 8.5 (8.5-10.1) mg/dl
[2020-05-04] MEDS: HYDROmorphone INJ 0.5 MG/0.5 ML SYR IV PRN ×2 (15:59→20:23)
[2020-05-04] MEDS: GABAPENTIN 100 MG CAP PO SCH (21:02)
[2020-05-04] MEDS: CYANOCOBALAMIN 500 MCG TABLET (VITAMIN B-12) PO SCH (21:03)
[2020-05-04] MEDS: SENNA 8.6 MG TAB PO SCH (21:03)
[2020-05-04] MEDS: CHOLECALCIFEROL 1,000 UNITS 25 MCG TAB PO SCH (21:04)
[2020-05-05] MEDS: Scopolamine CHECK PATCH PLACEMENT SCH ×2 (00:06→08:49)
[2020-05-05] MEDS: HYDROmorphone INJ 0.5 MG/0.5 ML SYR IV PRN ×2 (02:14→06:19)
[2020-05-05] MEDS: ACETAMINOPHEN 500 MG TAB PO SCH ×2 (06:20→12:25)
[2020-05-05] MEDS: OXYCODONE HCL IR 5 MG TAB (IMMEDIATE RELEASE) PO PRN ×2 (08:46→12:25)
[2020-05-05] MEDS: DOCUSATE SODIUM 100 MG CAP PO SCH (08:47)
[2020-05-05] MEDS: ASCORBIC ACID 500 MG TAB PO SCH (08:47)
[2020-05-05] MEDS: GABAPENTIN 400 MG CAP PO SCH (08:47)
[2020-05-05] MEDS: MULTIVITAMIN TAB PO SCH (08:47)
[2020-05-05] MEDS: ENOXAPARIN INJ 30 MG/0.3 ML SYR SQ SCH (08:48)
[2020-05-05] MEDS: FERROUS GLUCONATE 324 MG TAB PO SCH (08:48)
--- NOTE | 2020-05-05 09:46 | Orthopedic Progress Note ---
Date of Service May 05, 2020 Assessment & Plan (1) Osteoarthritis of right knee: POD # 2 s/p R TKA, doing as well as expected. Continue regular diet. WBAT with walker, D/C immobilizer. OOB to chair. Continue pain control with PO pain meds and ice. Post-op dressing removed. Silverlon applied. Earnestine hose donned. DVT prophylaxis: TEDs 3 weeks, foot pumps while in hospital (reapplied during my visit), continue Lovenox 30 mg SubQ twice daily x 3wks, to then be followed by ASA 81 mg mg BID for another 3 weeks. PT/OT. D/C planning. Plan to DC this afternoon after session of PT and lunch Admission and Anticipated Discharge Date Admission Date: May 03, 2020 Subjective Patient is sitting up in bed eating breakfast. States has not yet seen PT today. Feels like he would be ready to go home later today. Had a dose of dilaudid earlier this am. Denies fever/chills/sweats, calf pain, chest pain, SOB, N/V, lightheadedness or dizziness. Plans for home health PT. Physical Exam Physical Exam: Sitting up in bed. Left leg with earnestine hose. Right with post-op dressings. He tolerated removal of dressings. Dry blood on 4x4s. Slight area to distal incision with mild bloody drainage. No signs of infection. B LE NV intact with palpable DP and PT pulses. Sensation intact to feet. Able to wiggle toes and ankles. Right calf soft. Neg homans. Results & Data ([facility]) Vital Signs (Past 12 Hours) Vital Signs Temp Pulse Resp BP Pulse Ox 05/05/20 07:00 37.2 C 67 16 134/71 96 05/04/20 23:24 37.7 C H 73 16 127/67 95
--- NOTE | 2020-05-06 13:42 | Discharge Summary ---
Date of Service May 05, 2020 Principal Diagnosis Right knee osteoarthritis Discharge Data Allergies Allergy/AdvReac Type Severity Reaction Status Date / Time Iodinated Contrast Media Allergy Intermediate HIVES,HOT Verified 05/03/20 05:44 FLUSHED FEELING iodine Allergy Intermediate HIVES, HOT Verified 05/03/20 05:44 FLASHES WITH IV DYE NO PROBLEM WITH TOPICAL prednisone AdvReac Severe PSYCHOSIS Verified 05/03/20 05:44 Consultations 05/03/20 10:48 Consult Case Management - Discharge Planning Routine Procedures Performed Operation Date: 05/03/20 07:15 Actual Procedures p Right Total Knee Arthroplasty(Right) - Prakash Leatha Velásquez MD Ordered Studies 05/03/20 05:00 US - OR guided needle placemen Routine Hospital Course (1) Osteoarthritis of right knee: 80 yr old male underwent R TKR by Dr Velásquez on 05-03-20. He tolerated procedure without complication. He tolerated spinal anesthetic and single femoral nerve block. He tolerated IV Abx per-op and 24hr post-op. He was admitted to floor under observation. Night one was without incident. His POD 1 AM labs were WNL and vitals WNL. He was seen by PT and tolerated. He however throughout the first 24hrs required IV pain medication. On POD 2, he felt better. Pain controlled improved. He tolerated PO diet and fluids with vitals remaining WNL. He was deemed stable to DC in PM after PT and lunch. Before he left, his post-op dressings were removed and changed to silverlon waterproof dressing. DVT prophylaxis in house consisted of TEDS, foot pumps, and Lovenox 30mg SQ BID. In house patient ambulated with walker as tolerated R knee immobilizer. Upon DC patient will go home with and HHPT. He will be WBAT R LE with walker. Immobilizer DCd. Silverlon dressing to remain on until f/u appointment. DVT prophylaxis to include TEDS for 3wks and Lovenox 30mg SQ BID x 3wks followed by ASA 81mg BID x 3wks. Other new DC medications include Vit C BID x 2wks, Iron BID x 2wks, Tylenol 1000mg q8hrs for mild to moderate pain, and oxycodone 5mg 1-2 po q 4-6hrs as needed for severe pain. Medication sent to his pharmacy. Please see below for further Discharge Instructions/Details. Patient advised to call the office or go the the ER for questions or concerns. Our office number is [phone]. He has a follow-up appointment scheduled for 2wks. Total Time Total Time Spent Total Time Spent (In Minutes): 25 minuted Discharge Plan Discharge Items Patient Disposition: Home - Home Health Services Reason For Visit: Right Knee Osteoarthritis Discharge Diagnosis: Right Knee Osteoarthritis Activity: Per Instructions section Bathing Comment: Keep waterproof dressing on; may shower; dont submerge Exercise Comment: per physical therapy Driving/Machine Use: No driving until cleared by surgeon Weightbearing: Right weightbearing Weightbearing Comment: as tolerated with walker as needed Non-emergency contact: Surgeon Call non-emergency contact if: your pain is not controlled, your temperature is above 101.5, your wound has increased redness and your wound has increased drainage Follow-up/Referrals: Kyler Leggett DO [Primary Care Provider] - Kristin Hickman P.A.-C. [Physician Hvac Specialist] - 05/18/20 11:15 am Diet: Regular Addtl Attending Provider Instructions: Post-operative Instructions Pain Expect to be in a fair amount of pain after surgery. Remember, our goal is not to eliminate your pain, but to make it tolerable. It is a good idea to stay ahead of your pain by taking the medications you were prescribed once you get home. Typically, the pain starts improving 3-7 days after surgery. You should start weaning off the narcotic pain medication (oxycodone) as soon as your pain improves. Please call our office if your pain is not adequately controlled. You can take tylenol 1000mg every 8hrs for mild to moderate pain. Ice Ice your operative site at least 5 times a day for 15-30 minutes at a time. Make sure you have a thin cloth between the ice or cooling unit and your skin to prevent mcghee bite. This is especially important if you received a nerve block. Continue icing your operative site for the first 5-7 days after surgery, then as needed. Diet/Nausea/Vomiting Start by drinking clear liquids and eating crackers. If you can tolerate this, then you may resume your normal diet. If you feel nauseated or vomit, take Zofran/ondansetron (if prescribed). Please call our office if you have intractable nausea or vomiting, or, if after hours, you may go to the Emergency Room for help. Constipation Constipation is a common side effect of narcotic pain medication. If you have not had a bowel movement within 2 days after surgery, we recommend purchasing an over the counter laxative such as Milk of Magnesia, Dulcolax, or Miralax from a local pharmacy, and taking it as instructed. Call our clinic if any questions. Weight bearing and Range of Motion. Weightbearing as tolerated with walker. No restrictions with range of motion. Physical therapy Initially you will start with home health physical therapy. At our first visit with at our office we will provide you with script for outpatient physical therapy. Wound care and showering We will inspect your wound at your first post-operative visit, and may do a dressing change at that time. Most patients will be in a water-proof dressing that is removed 14 days after surgery. It is normal to see some dried blood on the dressing. Do not remove your dressing, paper strips or sutures yourself unless you are given permission. Showering is allowed the day after surgery. Do not scrub or remove any dressings. The wound should not be submerged underwater (i.e. in a bathtub or pool) until 4 weeks after surgery CHANELLE stockings If you were given white stockings, these are to be worn at all times except to shower and sleep (on both legs) for the first 2 weeks after surgery. We will discuss removal at your first follow-up appointment. Driving You may not drive while taking narcotic pain medication. We will discuss return to driving at your first follow-up appointment. Return To Work Your return to work depends on what surgery was done and what type of work you do. Please bring any paperwork your employer needs completed to your first post-operative visit. Also, bring a description of your job duties, as this helps us to understand what risks you may face at work. Travel Avoid long distance travel (greater than 1 hour) in airplanes and cars for the first 6 weeks after surgery if possible. If you must travel, please let us know so we can discuss additional measures to prevent blood clots. Follow-up You should have a follow-up appointment already scheduled for 2 weeks after surgery. If not, please contact our office to make this appointment before you leave the hospital. When to call the office [phone] It is normal to have swelling and bruising in the limb that was operated on. This will improve with time. It is also normal to have fevers for the first 2 days after surgery. Reasons you should call your doctor include: Uncontrolled pain; Nausea, vomiting, or constipation that does not improve with medication; Fevers over 101.5, chills, sweats; Drainage or bleeding from the wound; Foul odor; Spreading areas of redness; Any other concerns. NEW MEDICATIONS: SCRIPTS WILL BE SENT TO YOUR PHARMACY: OXYCODONE as prescribed as needed for severe pain TYLENOL 1000mg up to three times a day as needed for mild to moderate pain IRON 324mg twice daily for 2 wks VITAMIN C 500mg twice daily for 2wks LOVENOX 30MG injection twice daily for 3wks then ASPIRIN 81mg twice daily for 3wks to prevent blood clots Pending Studies at Discharge: No Stand-Alone Forms: [facility] [employer], Smoking Cessation Medications and DC Order Prescriptions: New acetaminophen 500 mg Tablet 1,000 mg PO Q8 PRN (Reason: pain) Qty: 60 RF: 0 ascorbic acid (vitamin C) [Vitamin C] 500 mg Tablet 500 mg PO BIDM 14 Days Qty: 28 RF: 0 oxycodone 5 mg Tablet 5 - 10 mg PO .Q4-6hrs PRN (Reason: pain) Qty: 30 RF: 0 enoxaparin [Lovenox] 30 mg/0.3 mL Syringe 30 mg subcut Q12H 20 Days Qty: 12 RF: 0 ferrous gluconate 324 mg (38 mg iron) Tablet 324 mg PO BIDM 14 Days Qty: 28 RF: 0 Continued sildenafil 100 mg tablet 100 mg PO DAILY PRN (Reason: sexual activity) Qty: 6 RF: 11 gabapentin 400 mg capsule 400 mg PO BID RF: 0 gabapentin 100 mg capsule 100 mg PO HS RF: 0 gabapentin [Neurontin] 400 mg Capsule 400 mg PO HS RF: 0 cyanocobalamin (vitamin B-12) 500 mcg Tablet 500 mcg PO HS RF: 0 cholecalciferol (vitamin D3) [Vitamin D3] 25 mcg (1,000 unit) Tablet 25 mcg PO HS RF: 0 Discontinued Tylenol Extended Release 1,000 mg PO Q6H PRN (Reason: Pain) RF: 0 Discharge Orders: Discharge Order (Routine); Ordered 05/05/20 Ordered By: Kristin Hickman Admission Data Admit Date/Time: 05/03/20 10:48 Attending Provider: Prakash Velásquez Admit Provider: Prakash Velásquez Primary Care Provider: Kyler Leggett Other Interventions: Discharge Summary Assessment (RN) Last Done: 05/05/20 12:50
== END 2020-05-05 13:37 | disposition home health service (06) ==
LOC: ASU 05:15 → 3N 05:15

== ENCOUNTER 2025-08-11 10:34 | Inpatient (IN) ==
[2025-08-11 11:27] LABS: Hematocrit (blood only) 45.2 % (42.0-52.0); Hemoglobin 15.9 g/dL (14.0-18.0); Immature Granulocytes # (auto) 0.04 K/uL (0.01-0.20); Immature Granulocytes % (auto) 0.5 %; Mean Corpuscular Hemoglobin 30.5 pg (25.0-34.0); Mean Corpuscular Volume 86.8 fL (80.0-100.0); Platelet Count 263 K/uL (130-400); RDW Standard Deviation 41.6 fL (36.4-46.3); Red Blood Count 5.21 M/uL (4.70-6.10); White Blood Count 7.33 K/ul (4.8-10.8)
[2025-08-11 11:43] LABS: Alanine Aminotransferase 16.0 U/L (7-52); Albumin Globulin Ratio 1.3 (0.9-2); Albumin Level 4.6 gm/dl (3.4-5.0); Alkaline Phosphatase 72.0 U/L (34-104); Anion Gap 9.0 (3-11); Bilirubin,Total 0.8 mg/dl (0.2-1.0); Blood Urea Nitrogen 25.0 mg/dl (6-23); Calcium 9.8 mg/dl (8.6-10.3); Carbon Dioxide 26.0 mmol/L (21-32); Chloride 100.0 mmol/L (98-107); Creatinine Clr Calc Pharmacy 63.7 ml/min; Globulin 3.5 gm/dl (2.5-4.0); Glucose 139.0 mg/dl (70-99(Fasting)); Lipase 16.0 U/L (11-82); Potassium 4.2 mmol/L (3.5-5.1); Sodium 135.0 mmol/L (136-145); Total Protein 8.1 gm/dl (6.0-8.3)
--- NOTE | 2025-08-11 12:15 | CT Scan Report ---
EXAM: CT Abdomen and Pelvis Without Intravenous Contrast INDICATION: Pain TECHNIQUE: Axial computed tomography images of the abdomen and pelvis without intravenous contrast. Sagittal and coronal reformatted images were created and reviewed. This CT exam was performed using one or more of the following dose reduction techniques: automated exposure control, adjustment of the mA and/or kV according to patient size, and/or use of iterative reconstruction technique. COMPARISON: CT pelvis 04/08/2017 FINDINGS: Limitations: None. Lung bases: There is mild dependent atelectasis in the lung bases. The liver is normal in size. There are a few small hypodense nodules likely cysts. There is very mild nodular contour and atrophy of the left lobe. No mass. Pleural space: No visualized pleural effusion or pneumothorax. Heart: No abnormality noted. Mediastinum: No abnormality noted. ABDOMEN: Liver: Lack of intravenous contrast limits detection of some masses. No abnormality noted. Gallbladder and bile ducts: The gallbladder has been removed. In the martha hepatis is a limiting calcified structure adjacent to his cholecystectomy clips measuring 1.6 cm diameter which could be a dilated cystic duct stump. There may be a small stone. The common bile duct is normal in caliber. Pancreas: No pancreatic mass, calcification, inflammation or ductal dilation noted. Spleen: No acute abnormality noted. Adrenals: No acute abnormality noted. Kidneys and ureters: No abnormality noted. No stones. No hydronephrosis. No significant perinephric fluid. Stomach and bowel: There is marked diverticulosis of the entire colon most notable on the left. No diverticulitis. Small bowel loops dilated proximal and mid small bowel loops. Moe transition point is not distinctly defined. It is likely in the mid pelvis where there is some associated mesenteric inflammation and slight caliber change. PELVIS: Appendix: No findings to suggest acute appendicitis. Bladder: Appears normal for the degree of filling. No stones or inflammation. No large mass. Masses may not be detected in the absence of opacification. Reproductive: No abnormalities noted. ABDOMEN and PELVIS: Intraperitoneal space: No free air. No significant fluid collection. Bones/joints: Degenerative changes noted throughout the spine. No acute osseous abnormality seen. Degenerative changes noted in the hips right greater than left. Soft tissues: No acute abnormality noted. Vasculature: Inferior vena cava filter in good position. Atherosclerotic calcification of the aorta and branches. No aneurysm. Lymph nodes: No pathologically enlarged lymph nodes. IMPRESSION: 1. Abnormal intestinal gas pattern with findings of early or partial small bowel obstruction. Transition point is not distinctly defined but likely in the mid small bowel in the mid pelvis. Consider adhesions. Impression extensive colonic diverticulosis. No evidence of diverticulitis. 2. Slight lobulated contour of the liver. Correlate clinically for possible cirrhosis. ACT 112: N/A Electronically signed by Norma Henry 08-11-2025 12:15 PM
[2025-08-11] MEDS: ALUMINUM/MAGNESIUM SUSP 30 ML UDC PO STA (12:22)
[2025-08-11] MEDS: PLASMA-LYTE A 500 ML IV ONE (12:22)
[2025-08-11] MEDS: FAMOTIDINE 20MG IV PUSH 20 MG/5 ML SYR IV STA (12:22)
--- NOTE | 2025-08-11 13:21 | Emergency Department Note ---
Impression & Plan SBO (small bowel obstruction), Acute hyponatremia ED Provider Note NAME: JUVENAL SAMPSON Jr AGE: 85 SEX: M : 1940 ARRIVES VIA: Walk-In INFORMANT: Patient, family ED PROVIDER(S): Anthony Medina DO CHIEF COMPLAINT: abdominal pain HPI: This is an 85-year-old male with the PMHx of HTN, HLD, KAREEN, ITP, gastritis/GERD and BPH presenting to [facility] for further evaluation of abdominal pain. Patient is accompanied by his family who provide additional history 6 mother. Patient patient states that symptoms have been ongoing for the last 4 weeks. Patient reports intermittent abdominal pains and cramping. Patient has had no normal bowel movements but continues to have flatus. Patient states that he had very small bowel movement approximately 2 days ago. Patient's abdominal surgical history includes numerous hernia repairs including bilateral inguinal hernia repair as well as cholecystectomy. He notes that he has attempted clearance with diets without improvement. Patient states that he fails to tolerate p.o. intake secondary to severe symptoms. They deny fever or chills. No cough or congestion. Denies chest pain or palpitations. No shortness of breath. They deny abdominal pain, nausea and vomiting. No urinary complaints. No recent changes in bowel movements. Patient denies recent changes in medications or OTC supplements. Patient offers no other complaints, today. ADDITIONAL HISTORY OBTAINED: Per HPI Chronic Medical/Social Conditions Affecting Care: Per HPI PAST MEDICAL HISTORY: See Below PAST SURGICAL HISTORY: See Below FAMILY HISTORY: See Below SOCIAL HISTORY: See Below HOME MEDICATIONS: See Below ALLERGIES: See Below VITALS: See Below PHYSICAL EXAMINATION: GENERAL: Sitting up in bed, alert, well appearing, well nourished, no distress, non-toxic EYE EXAM: normal conjunctiva. OROPHARYNX: no exudate, no erythema, lips, buccal mucosa, and tongue normal and mucous membranes are dry NECK: supple, no nuchal rigidity, no adenopathy, non-tender LUNGS: Clear to auscultation. Normal chest wall mechanics HEART: no murmurs, regular rate, regular rhythm ABDOMEN: abdomen soft, generalized TTP, no masses, no rebound or guarding. BACK: Back is symmetrical on inspection and there is no deformity, no midline tenderness, no CVA tenderness. SKIN: no rashes and no bruising UPPER EXTREMITIES: upper extremities are grossly normal. LOWER EXTREMITIES: No pitting edema. NEURO EXAM: Normal sensorium, GCS 15, normal speech, no gross weakness of arms, no weakness of legs. MEDICAL DECISION MAKING: Differential diagnoses includes but not limited to GERD, gastritis, appendicitis, bowel obstruction, diverticulitis, malignancy, nephrolithiasis, gastroenteritis, ACS, PNA, pancreatitis, hepatobiliary disease, UTI In summary, this is an 85 year old male who presented with abdominal pain. Differential as above. Nursing notes and pertinent past medical records reviewed. Vital signs reviewed and the patient is mildly hypertensive but otherwise afebrile and HDS. History and presentation revealed symptoms have been ongoing and failure to improve. Extensive abdominal surgical history. He is now struggling with PO intake and appears hypovolemic. Physical examination revealed as above. As a result of my initial evaluation, IV access was established and the patient was placed on CCRM. Therapeutics ordered include IVFR, IV Famotidine and Maalox. His symptoms are concerning given abdominal surgical history and age. Plan for CTAP for further evaluation. Diagnostics interpreted by me include cardiac monitoring as listed below: -Cardiac Monitoring: An order was placed for continuous cardiac monitoring. The monitor shows a rate of 60-80s with regular rhythm. Patient completed laboratory studies and imaging. Results independently interpreted by me are no leukocytosis or anemia. There is no significant electrolyte derangements or significant kidney dysfunction from baseline. No changes in LFTs. There is minimal hyponatremia and increased BUN:Cr. This is likely related to poor PO intake. Lactate was WNL doubting ischemia. The patient was managed with IV Fentanyl and Tylenol as he continued with symptoms despite above management. CTAP shows evidence of a SBO. He is currently not vomiting. No indication for NGT at this time. Released by note asking about her labs there is mild right obstruction. No indications for emergent surgical evaluation. Patient has tried a clear liquid diet without improvement. I offered outpatient follow-up and management but this felt to be unreasonable as he has tried these therapies without improvement. Will admit to the hospital for bowel rest and pain control. He will likely need IV hydration Ultimately, the decision was made to admit the patient for SBO. I discussed the case with the hospitalist service via telephone/TigerText and they are agreeable to admit the patient to their services. The patient was discussed with [facility] family medicine physician assistant, Dr. Cantu. Based on the above, including the patient's age, coexisting illnesses, labs, imaging, and exam findings the decision to treat as an inpatient. I discussed the patient with the hospitalist team who recommended admission to their services. They received the medications, treatments, interventions indicated above and their condition remained stable. I discussed my findings with the patient and their family and they understand and agree with the treatment plan. All patient / family questions were answered to their satisfaction. Consults/Care Managements Discussions: Per MDM ER treatment provided: See above Procedures: None Critical Care: None The chart was completed utilizing [employer] voice recognition software. Grammatical errors, random word insertions, pronoun errors, and incomplete sentences are an occasional consequence of this system due to software limitations, ambient noise, and hardware issues. Any formal questions or concerns about the content, text, or information contained within the body of this dictation should be directly addressed to the physician for clarification. 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 Stable- follows with PCP Hyperlipidemia (Acute) Memory loss Seen by neuro in the past- work up negative- referred to neuropsych Obstructive sleep apnea of adult (Acute) No device - has lost weight recently - no recent sleep study S/P orchiectomy right Glaucoma Follows with eye doctor routinely Medical History History of anesthesia reaction Hypoglycemia BCC (basal cell carcinoma) Encounter for pre-operative examination Hyperglycemia Poor historian Liver mass GERD (gastroesophageal reflux disease) Chronic back pain History of DVT (deep vein thrombosis) Neuropathy involving both lower extremities Hypomania Surgical History History of total right knee replacement History of splenectomy Hx of vasectomy History of colonoscopy History of esophagogastroduodenoscopy (EGD) History of cholecystectomy History of hernia surgery History of transurethral resection of prostate History of basal cell carcinoma (BCC) excision History of lumbar discectomy S/P insertion of IVC (inferior vena caval) filter History of tooth extraction History of bilateral cataract extraction Family History Mother Cancer Father Cancer Hypertension Brother Hypertension Unknown Heart disease Sister Family history of diabetes mellitus Sister Family history of diabetes mellitus Other No family history of adverse response to anesthesia Social History Smoking Status: Never smoker Second Hand Exposure: Yes (parents smoked); Do You Dip or Chew Tobacco: No (quit); Hx Alcohol Use: Yes Alcohol type: wine Hx Substance Use: No Preferred Language: Micronesian Communication Ability: Effective Visual Impairment: No Limitations Hearing Ability: Normal Jordan Man Required: No Beliefs That Will Affect Care: None marital status: Current Living Situation: Spouse Feels Safe at Home: No Is there a partner from a previous relationship who is making you feel unsafe now?: No Assistive Devices: Cane and Denture - Upper Allergies Allergies Allergy/AdvReac Type Severity Reaction Status Date / Time Iodinated Contrast Media Allergy Intermediate HIVES,HOT Verified 07/23/25 11:30 FLUSHED FEELING iodine Allergy Intermediate HIVES, HOT Verified 07/23/25 11:30 FLASHES WITH IV DYE NO PROBLEM WITH TOPICAL prednisone AdvReac Severe PSYCHOSIS Verified 07/23/25 11:30 Home Meds Home Medications Medication Instructions Recorded Confirmed cholecalciferol (vitamin D3) 25 25 mcg PO HS 04/06/20 08/11/25 mcg (1,000 unit) tablet (Vitamin D3) cyanocobalamin (vitamin B-12) 500 500 mcg PO HS 04/06/20 08/11/25 mcg tablet acetaminophen 500 mg tablet 1,000 mg PO HS PRN pain 05/24/21 08/11/25 gabapentin 600 mg tablet 600 mg PO TID 08/11/25 08/11/25 melatonin 1 mg tablet 1 mg PO HS PRN Sleep 08/11/25 08/11/25 Results & Data (ED) Vital Signs Vital Signs - 24 hr 08/11/25 10:50 08/11/25 12:12 08/11/25 12:15 Temperature 36.4 C L Temperature Source Temporal Artery Scan Pulse Rate 87 73 Pulse Rate from SpO2 Sensor Respiratory Rate 20 Respiratory Effort / Characteristics Non-Labored Respiratory Depth Normal Blood Pressure 137/82 149/87 H Blood Pressure Mean 100 119 Pulse Oximetry 95 Oxygen Delivery Method Room Air Sepsis Recent Fever Within 48 Hours No Sepsis New/Unexplained Change in Mental Status No Sepsis Action Taken by Nursing No Action Required 08/11/25 12:15 08/11/25 12:30 08/11/25 12:30 Temperature Temperature Source Pulse Rate 73 70 Pulse Rate from SpO2 Sensor 73 Respiratory Rate 19 18 Respiratory Effort / Characteristics Respiratory Depth Blood Pressure 150/81 H Blood Pressure Mean 101 Pulse Oximetry 95 Oxygen Delivery Method Sepsis Recent Fever Within 48 Hours Sepsis New/Unexplained Change in Mental Status Sepsis Action Taken by Nursing 08/11/25 13:00 08/11/25 13:00 08/11/25 13:36 Temperature Temperature Source Pulse Rate 67 83 Pulse Rate from SpO2 Sensor 68 Respiratory Rate 17 16 Respiratory Effort / Characteristics Respiratory Depth Blood Pressure 156/85 H Blood Pressure Mean 114 Pulse Oximetry 96 Oxygen Delivery Method Sepsis Recent Fever Within 48 Hours Sepsis New/Unexplained Change in Mental Status Sepsis Action Taken by Nursing 08/11/25 14:00 08/11/25 14:00 Temperature Temperature Source Pulse Rate 65 Pulse Rate from SpO2 Sensor 65 Respiratory Rate 18 Respiratory Effort / Characteristics Respiratory Depth Blood Pressure 157/91 H Blood Pressure Mean 105 Pulse Oximetry 97 Oxygen Delivery Method Sepsis Recent Fever Within 48 Hours Sepsis New/Unexplained Change in Mental Status Sepsis Action Taken by Nursing Laboratory Data 08/12/25 07:00 08/12/25 07:00 Lab Results 08/11/25 08/11/25 Range/Units 11:13 13:10 WBC 7.33 (4.8-10.8) K/ul RBC 5.21 (4.70-6.10) M/uL Hgb 15.9 (14.0-18.0) g/dL Hct 45.2 (42.0-52.0) % MCV 86.8 (80.0-100.0) fL MCH 30.5 (25.0-34.0) pg MCHC 35.2 (32.0-36.0) g/dL RDW Std Deviation 41.6 (36.4-46.3) fL RDW Coeff of Rajat 13.2 (11.5-14.5) % Plt Count 263 (130-400) K/uL MPV 9.1 L (9.4-12.4) fL Immature Gran % (Auto) 0.5 % Neut % (Auto) 73.3 % Lymph % (Auto) 14.9 % [place] % (Auto) 9.5 % Eos % (Auto) 1.1 % Baso % (Auto) 0.7 % Neut # (Auto) 5.37 (1.40-6.50) K/uL Lymph # (Auto) 1.09 L (1.20-3.40) K/uL [place] # (Auto) 0.70 H (0.11-0.59) K/uL Eos # (Auto) 0.08 (0.00-0.50) K/uL Baso # (Auto) 0.05 (0.00-0.20) K/uL Immature Gran # (Auto) 0.04 (0.01-0.20) K/uL Sodium 135 L (136-145) mmol/L Potassium 4.2 (3.5-5.1) mmol/L Chloride 100 (98-107) mmol/L Carbon Dioxide 26 (21-32) mmol/L Anion Gap 9 (3-11) BUN 25 H (6-23) mg/dl Creatinine 1.02 (0.6-1.4) mg/dl Est Cr Clr Drug Dosing 63.7 ml/min eGFR 71.13 BUN/Creatinine Ratio 24.5 H (10-20) Glucose 139 H (70-99(Fasting)) mg/dl Lactate 1.6 (0.4-2.0) mmol/L Calcium 9.8 (8.6-10.3) mg/dl Total Bilirubin 0.8 (0.2-1.0) mg/dl AST 24 (13-39) U/L ALT 16 (7-52) U/L Alkaline Phosphatase 72 (34-104) U/L Total Protein 8.1 (6.0-8.3) gm/dl Albumin 4.6 (3.4-5.0) gm/dl Globulin 3.5 (2.5-4.0) gm/dl Albumin/Globulin Ratio 1.3 (0.9-2) Lipase 16 (11-82) U/L Administered Medications Gabapentin (Gabapentin 300 Mg Cap) 600 mg PO TID SONIA Stop: 09/10/25 20:59 Last Admin: 08/12/25 09:11 Dose: 600 mg Documented By: Admin: 08/11/25 20:08 Dose: 600 mg Documented By: ATS Lactated Ringer's (Lr) 1,000 mls @ 125 mls/hr IV .Q8H SONIA Stop: 08/14/25 14:44 Last Admin: 08/12/25 06:14 Dose: 125 mls/hr Documented By: Infusion: 08/12/25 06:14 Dose: Infused Documented By: Admin: 08/11/25 23:22 Dose: 125 mls/hr Documented By: Infusion: 08/11/25 23:18 Dose: Infused Documented By: Admin: 08/11/25 15:18 Dose: 125 mls/hr Documented By: MMG Acetaminophen (Ofirmev) 1,000 mg in 100 mls @ 400 mls/hr IV Q8H PRN PRN Reason: Pain Stop: 08/14/25 14:40 Last Infusion: 08/11/25 23:37 Dose: Infused Documented By: Admin: 08/11/25 23:22 Dose: 400 mls/hr Documented By: ATS Morphine Sulfate (Morphine Sulfate 2 Mg/Ml Carp) 2 mg IV Q4 PRN PRN Reason: Pain Stop: 08/25/25 14:45 Last Admin: 08/11/25 15:20 Dose: 2 mg Documented By: MMG Ondansetron HCl (Ondansetron Inj 2 Mg/Ml 2 Ml Vial) 4 mg IV Q6H PRN PRN Reason: Nausea Stop: 09/10/25 14:09 Last Admin: 08/11/25 15:25 Dose: 4 mg Documented By: MMG Discontinued Medications Al Hydrox/Mg Hydrox/Simethicone (Aluminum/Magnesium Susp 30 Ml Udc) 30 ml PO NOW STA Stop: 08/11/25 12:16 Last Admin: 08/11/25 12:22 Dose: 30 ml Documented By: TNK Fentanyl Citrate (Fentanyl Citrate Pf 100 Mcg/2 Ml Vial) 50 mcg IV NOW ONE Stop: 08/11/25 12:58 Last Admin: 08/11/25 13:37 Dose: 50 mcg Documented By: MMG Parenteral Electrolytes (Plasma-Lyte A Ph 7.4) 500 mls @ 999 mls/hr IV .Q31M ONE Stop: 08/11/25 12:45 Last Infusion: 08/11/25 13:04 Dose: Infused Documented By: Admin: 08/11/25 12:22 Dose: 999 mls/hr Documented By: FUADK Famotidine (Pepcid 20mg Iv Push) 20 mg in 5 mls @ 2.5 mls/min IV NOW STA Stop: 08/11/25 12:16 Last Admin: 08/11/25 12:22 Dose: 2.5 mls/min Documented By: FUADK Acetaminophen (Ofirmev) 1,000 mg in 100 mls @ 400 mls/hr IV NOW STA Stop: 08/11/25 13:11 Last Infusion: 08/11/25 14:12 Dose: Infused Documented By: Admin: 08/11/25 13:37 Dose: 400 mls/hr Documented By: DANNY Metoclopramide HCl (Metoclopramide Hcl Inj 5 Mg/Ml 2 Ml Vial) 5 mg IV ONE ONE Stop: 08/11/25 19:16 Last Admin: 08/11/25 19:25 Dose: 5 mg Documented By: ATS Imaging Data Radiologist's Impression: Abdomen/Pelvis CT 08/11/25 11:49 EXAM: CT Abdomen and Pelvis Without Intravenous Contrast INDICATION: Pain TECHNIQUE: Axial computed tomography images of the abdomen and pelvis without intravenous contrast. Sagittal and coronal reformatted images were created and reviewed. This CT exam was performed using one or more of the following dose reduction techniques: automated exposure control, adjustment of the mA and/or kV according to patient size, and/or use of iterative reconstruction technique. COMPARISON: CT pelvis 04/08/2017 FINDINGS: Limitations: None. Lung bases: There is mild dependent atelectasis in the lung bases. The liver is normal in size. There are a few small hypodense nodules likely cysts. There is very mild nodular contour and atrophy of the left lobe. No mass. Pleural space: No visualized pleural effusion or pneumothorax. Heart: No abnormality noted. Mediastinum: No abnormality noted. ABDOMEN: Liver: Lack of intravenous contrast limits detection of some masses. No abnormality noted. Gallbladder and bile ducts: The gallbladder has been removed. In the martha hepatis is a limiting calcified structure adjacent to his cholecystectomy clips measuring 1.6 cm diameter which could be a dilated cystic duct stump. There may be a small stone. The common bile duct is normal in caliber. Pancreas: No pancreatic mass, calcification, inflammation or ductal dilation noted. Spleen: No acute abnormality noted. Adrenals: No acute abnormality noted. Kidneys and ureters: No abnormality noted. No stones. No hydronephrosis. No significant perinephric fluid. Stomach and bowel: There is marked diverticulosis of the entire colon most notable on the left. No diverticulitis. Small bowel loops dilated proximal and mid small bowel loops. Moe transition point is not distinctly defined. It is likely in the mid pelvis where there is some associated mesenteric inflammation and slight caliber change. PELVIS: Appendix: No findings to suggest acute appendicitis. Bladder: Appears normal for the degree of filling. No stones or inflammation. No large mass. Masses may not be detected in the absence of opacification. Reproductive: No abnormalities noted. ABDOMEN and PELVIS: Intraperitoneal space: No free air. No significant fluid collection. Bones/joints: Degenerative changes noted throughout the spine. No acute osseous abnormality seen. Degenerative changes noted in the hips right greater than left. Soft tissues: No acute abnormality noted. Vasculature: Inferior vena cava filter in good position. Atherosclerotic calcification of the aorta and branches. No aneurysm. Lymph nodes: No pathologically enlarged lymph nodes. IMPRESSION: 1. Abnormal intestinal gas pattern with findings of early or partial small bowel obstruction. Transition point is not distinctly defined but likely in the mid small bowel in the mid pelvis. Consider adhesions. Impression extensive colonic diverticulosis. No evidence of diverticulitis. 2. Slight lobulated contour of the liver. Correlate clinically for possible cirrhosis. ACT 112: N/A Electronically signed by Norma Henry 08-11-2025 12:15 PM Discharge Plan Visit Data Chief Complaint: GI Assessment Stated Complaint: STOMACH/GASTRIC PAIN FOR THE LAST 3 1/2 WKS ED Provider: Anthony Medina Discharge Problem: SBO (small bowel obstruction), Acute hyponatremia Patient Disposition: Admitted As Inpatient Condition: Fair Discharge Instructions Interventions: ED Discharge Assessment Last Done: 08/11/25 16:23
[2025-08-11] MEDS: ACETAMINOPHEN 1,000 MG/100 ML VIAL IV STA (13:37)
--- NOTE | 2025-08-11 14:10 | History & Physical Report ---
Date of Service August 11, 2025 Assessment & Plan (1) Neuropathy: (2) History of DVT (deep vein thrombosis): (3) Small bowel obstruction: Plan Patient with PMH of multiple abdominal surgeries, constipation, DVT, basal cell carcinoma, and neuropathy presents into the hospital for abdominal pain that has been ongoing for about 4 weeks. After meeting with PCP on 07/30 tried an increase dose of Miralax which helped and then did a liquid diet and avdvanced to bland diet, however abdominal pain is back. Labs and vitals were fairly unremarkable. On Abd/pelvis CT it showed an early or partial SBO. #SBO - SBO most likely from adhesion of multiple abdominal surgeries. - gen surg consulted recs appreciated - IV LR 125ml/hr - tylenol 1000 IV Q8H PRN for pain management - Diet is NPO (with a few ice chips) until patient has a BM. Once he has a BM c an advance diet to clear liquids. - If patient hasn't eaten in 2 days will order IV D5 NS. If patient hasn't eaten in 3-4 days then PPN. - Continue to monitor for worsening pain, blood pressure, and fever. If those happen will order a lactate. - CBC, and CMP in AM #History of DVT - Patient had a history of a DVT and stated at bedside that he had a "mesh" put in the right groin area to help prevent clots. - Is not on blood thinners at home - Due to patient possibly requiring surgery, will hold pharmacologic DVT prophylaxis. Will use SCD. #Neuropathy - Continue home gabapentin Full Code DVT Prophylaxis: SCD History of Present Illness Chief Complaint: Abdominal Pain Primary Care Provider: Kyler Leggett DO Patient with PMH of extensive abdominal surgery (14 hernia repairs), constipation, DVT, basal cell carcinoma, and neuropathy presents into the hospital for 4 week abdominal pain. Patient saw PCP on 07/30 with similar symptoms. In the note reports that his last BM was on 07/20 and then was starting to have cramps. Before 07/30 tried miralax three times that did not work. At the end of the visit, patient was advised to increase the dose of the miralax. Patient's reports the increased dose helped then patient went on liquid diet then advanced to a bland diet. However, abdominal pain is back and states the pain is at the lower quadrants of his abdomen. Last night he felt that his stomach was heavily "inflated basketball". Patient tried to vomit but couldn't. He says the pain is a "steady" pain and his reports that it "comes and goes" like a "rolling" pain. Reports that 2 days ago he had a bowel movement that only had finger sized stool then diarrhea. Patient states that he can pass gas. He denies fever, chest pain, and shortness of breath. His says he can urinate well. Allergies Allergy/AdvReac Type Severity Reaction Status Date / Time Iodinated Contrast Media Allergy Intermediate HIVES,HOT Verified 07/23/25 11:30 FLUSHED FEELING iodine Allergy Intermediate HIVES, HOT Verified 07/23/25 11:30 FLASHES WITH IV DYE NO PROBLEM WITH TOPICAL prednisone AdvReac Severe PSYCHOSIS Verified 07/23/25 11:30 Home Medications Medication Instructions Recorded Confirmed Type cholecalciferol (vitamin D3) 25 25 mcg PO HS 04/06/20 08/11/25 History mcg (1,000 unit) tablet (Vitamin D3) cyanocobalamin (vitamin B-12) 500 500 mcg PO HS 04/06/20 08/11/25 History mcg tablet acetaminophen 500 mg tablet 1,000 mg PO HS PRN pain 05/24/21 08/11/25 History gabapentin 600 mg tablet 600 mg PO TID 08/11/25 08/11/25 History melatonin 1 mg tablet 1 mg PO HS PRN Sleep 08/11/25 08/11/25 History Past Med/Surg History Problem List (Updated 08/11/25 @ 16:02 by Ghulam Cantu DO) Small bowel obstruction Renal cyst (Chronic) Erectile dysfunction (Chronic) Encounter for pre-operative examination 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 Stable- follows with PCP Hyperlipidemia (Acute) Memory loss Seen by neuro in the past- work up negative- referred to neuropsych Obstructive sleep apnea of adult (Acute) No device - has lost weight recently - no recent sleep study S/P orchiectomy right Glaucoma Follows with eye doctor routinely Medical History History of anesthesia reaction Hypoglycemia BCC (basal cell carcinoma) Encounter for pre-operative examination Hyperglycemia Poor historian Liver mass GERD (gastroesophageal reflux disease) Chronic back pain History of DVT (deep vein thrombosis) Neuropathy involving both lower extremities Hypomania Surgical History History of total right knee replacement History of splenectomy Hx of vasectomy History of colonoscopy History of esophagogastroduodenoscopy (EGD) History of cholecystectomy History of hernia surgery History of transurethral resection of prostate History of basal cell carcinoma (BCC) excision History of lumbar discectomy S/P insertion of IVC (inferior vena caval) filter History of tooth extraction History of bilateral cataract extraction Family History Mother Cancer Father Cancer Hypertension Brother Hypertension Unknown Heart disease Sister Family history of diabetes mellitus Sister Family history of diabetes mellitus Other No family history of adverse response to anesthesia Social History Smoking Status: Never smoker Second Hand Exposure: Yes (parents smoked); Do You Dip or Chew Tobacco: No (quit); Hx Alcohol Use: Yes Alcohol type: beer and wine Hx Substance Use: No Preferred Language: Icelandic Communication Ability: Effective Visual Impairment: No Limitations Hearing Ability: Normal 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 Required: No Beliefs That Will Affect Care: None marital status: Current Living Situation: Spouse Feels Safe at Home: Yes Assistive Devices: Cane, Denture - Upper and Glasses Review of Systems Review of Systems: as per HPI Physical Exam Constitutional: WD/WN, vitals as above Eyes: + anicteric sclerae and EOM intact bilat erally Respiratory: normal respiratory effort, lungs clear to auscultation Cardiovascular: Rate/Rhythm: regular rate and regular rhythm Heart Sounds: normal S1, normal S2 and + murmur (systolic) Gastrointestinal (Abdomen): Percussion/Palpation: + abdomen tender (LLQ, RLQ) and abdomen soft; abdomen not rigid Skin: no rashes, warm and dry Trauma: + evidence of skin trauma (on R. lateral ankle had skin biopsy done. Is scabbed over.) Psychiatric: Apperance: appeared stated age Eye Contact: good eye contact Speech: normal rate/rhythm/volume of speech Results & Data Results & Data Vital Signs (Past 12 Hours) Vital Signs Temp Pulse Resp BP Pulse Ox O2 Del Method 08/11/25 12:30 70 18 08/11/25 12:30 150/81 H 08/11/25 12:15 73 19 95 08/11/25 12:15 73 08/11/25 12:12 149/87 H 08/11/25 10:50 36.4 C L 87 20 137/82 95 Room Air Laboratory Results 08/11/25 08/11/25 08/11/25 Range/Units 14:40 13:10 11:13 WBC 7.33 (4.8-10.8) K/ul RBC 5.21 (4.70-6.10) M/uL Hgb 15.9 (14.0-18.0) g/dL Hct 45.2 (42.0-52.0) % MCV 86.8 (80.0-100.0) fL MCH 30.5 (25.0-34.0) pg MCHC 35.2 (32.0-36.0) g/dL RDW Std Deviation 41.6 (36.4-46.3) fL RDW Coeff of Rajat 13.2 (11.5-14.5) % Plt Count 263 (130-400) K/uL MPV 9.1 L (9.4-12.4) fL Immature Gran % (Auto) 0.5 % Neut % (Auto) 73.3 % Lymph % (Auto) 14.9 % Brown % (Auto) 9.5 % Eos % (Auto) 1.1 % Baso % (Auto) 0.7 % Neut # (Auto) 5.37 (1.40-6.50) K/uL Lymph # (Auto) 1.09 L (1.20-3.40) K/uL Brown # (Auto) 0.70 H (0.11-0.59) K/uL Eos # (Auto) 0.08 (0.00-0.50) K/uL Baso # (Auto) 0.05 (0.00-0.20) K/uL Immature Gran # (Auto) 0.04 (0.01-0.20) K/uL Sodium 135 L (136-145) mmol/L Potassium 4.2 (3.5-5.1) mmol/L Chloride 100 (98-107) mmol/L Carbon Dioxide 26 (21-32) mmol/L Anion Gap 9 (3-11) BUN 25 H (6-23) mg/dl Creatinine 1.02 (0.6-1.4) mg/dl Est Cr Clr Drug Dosing 63.7 ml/min eGFR 71.13 BUN/Creatinine Ratio 24.5 H (10-20) Glucose 139 H (70-99(Fasting)) mg/dl Lactate 1.6 (0.4-2.0) mmol/L Calcium 9.8 (8.6-10.3) mg/dl Total Bilirubin 0.8 (0.2-1.0) mg/dl AST 24 (13-39) U/L ALT 16 (7-52) U/L Alkaline Phosphatase 72 (34-104) U/L Total Protein 8.1 (6.0-8.3) gm/dl Albumin 4.6 (3.4-5.0) gm/dl Globulin 3.5 (2.5-4.0) gm/dl Albumin/Globulin Ratio 1.3 (0.9-2) Lipase 16 (11-82) U/L Urine Color Yellow Urine Appearance Clear (Clear) Urine pH 6.0 (4.5-7.5) Ur Specific [place] 1.016 (1.000-1.030) Urine Protein Negative (Negative) Urine Glucose (UA) Negative (Negative) Urine Ketones Trace H (Negative) Urine Blood 2+ H (Negative) Urine Nitrite Negative (Negative) Urine Bilirubin Negative (Negative) Urine Urobilinogen Negative (Negative) Ur Leukocyte Esterase Negative (Negative) Urine WBC (Auto) 0-5 (0-5) /hpf Urine RBC (Auto) 6-10 H (0-2) /hpf U Hyaline Cast (Auto) 3-5 H (0-2) /lpf U Epithel Cells (Auto) 0-2 (0-2) /hpf Urine Bacteria (Auto) None Seen (None Seen) Hyaline Casts Present A (None Presnt) /lpf Urine Mucus Present A (None Prsent) Urine Comment Supervising Physician Co-Signing Physician Notes Resident Physician Supervision Note: I personally examined the patient and verified all phan points of history and exam, discussed case, and agree with decision making with Dr. Cantu I saw the patient independently from Dr. Rothman Patient was accompanied by his . He says that he had 3 to 4-week history of intermittent crampy crescendo-decrescendo abdominal pain and decreased stool output with decreased appetite. His last stool was a small smear about 2 days prior. Patient has a history of extensive abdominal surgeries with including surgeries for pancreatic issues. Patient was at . Patient is identified having partial small bowel obstruction in emergency department. Examination is hypoactive bowel sounds he is slightly distended he is not with an acute abdomen he has no rebound tenderness and no guarding. He has a small systolic ejection murmur at the right upper sternal border which he says has been followed by his primary care and cardiology Otherwise his exam is benign Assessment scan of be small bowel obstruction likely related to adhesions given extensive surgical history plan for supportive care with n.p.o. except scant ice chips IV fluids to prevent dehydration parenteral pain control and general surgical consultation. I discussed the case with the resident and agree with the findings and plan as documented in the note. Any exceptions or clarifications are listed here: Documented By: Moses Mandujano MD Resident Activity Tracking Resident Involvement: Resident Care Provided Care Provided: Adult [facility]
[2025-08-11 15:05] LABS: Appearance Urine Clear (Clear); Bacteria Urine Automated None Seen (None Seen); Epithelial Cell Urine Auto 0-2 /hpf (0-2); Glucose Urine UA Negative (Negative); WBC Urine Automated 0-5 /hpf (0-5)
[2025-08-11] MEDS: LACTATED RINGER'S 1,000 ML IV SCH (15:18)
[2025-08-11] MEDS: MoRPHine SULFATE 2 MG/ML CARP IV PRN (15:20)
[2025-08-11] MEDS: ONDANSETRON INJ 2 MG/ML 2 ML VIAL IV PRN (15:25)
--- NOTE | 2025-08-11 16:22 | Billing Data ---
Date of Service August 11, 2025 Coding Level of Care Code 89162 INT INP/OBS CARE
[2025-08-11] MEDS: METOCLOPRAMIDE HCL INJ 5 MG/ML 2 ML VIAL IV ONE (19:25)
[2025-08-11] MEDS: GABAPENTIN 300 MG CAP PO SCH (20:08)
[2025-08-11] MEDS: ACETAMINOPHEN 1,000 MG/100 ML VIAL IV PRN (23:22)
[2025-08-12 07:15] LABS: Hematocrit (blood only) 38.9 % (42.0-52.0); Hemoglobin 14.0 g/dL (14.0-18.0); Mean Corpuscular Hemoglobin 31.0 pg (25.0-34.0); Mean Corpuscular Volume 86.1 fL (80.0-100.0); Platelet Count 225 K/uL (130-400); RDW Standard Deviation 41.3 fL (36.4-46.3); Red Blood Count 4.52 M/uL (4.70-6.10); White Blood Count 6.61 K/ul (4.8-10.8)
[2025-08-12 07:35] LABS: Alanine Aminotransferase 11.0 U/L (7-52); Albumin Globulin Ratio 1.4 (0.9-2); Albumin Level 3.8 gm/dl (3.4-5.0); Alkaline Phosphatase 59.0 U/L (34-104); Anion Gap 7.0 (3-11); Bilirubin,Total 0.9 mg/dl (0.2-1.0); Blood Urea Nitrogen 20.0 mg/dl (6-23); Calcium 8.9 mg/dl (8.6-10.3); Carbon Dioxide 24.0 mmol/L (21-32); Chloride 104.0 mmol/L (98-107); Creatinine Clr Calc Pharmacy 89.0 ml/min; Globulin 2.7 gm/dl (2.5-4.0); Glucose 102.0 mg/dl (70-99(Fasting)); Potassium 3.9 mmol/L (3.5-5.1); Sodium 135.0 mmol/L (136-145); Total Protein 6.5 gm/dl (6.0-8.3)
--- NOTE | 2025-08-12 10:28 | Surgery Consultation ---
Date of Consultation August 12, 2025 Assessment & Plan (1) SBO (small bowel obstruction): resolved possible SBO advance diet as tolerates no surgical issues will sign off History of Present Illness Attending Physician: Perico Sotelo MD History of Present Illness This is a 85YO male admitted with abdominal pain which has completely resolved. He is taking clears. His pain symptoms have been ongoing for the last 4 weeks with intermittent abdominal pains and cramping. He had a large BM and the pain is resolved. A CT scan was done with a possible early or partial SBO. Allergies Allergy/AdvReac Type Severity Reaction Status Date / Time Iodinated Contrast Media Allergy Intermediate HIVES,HOT Verified 07/23/25 11:30 FLUSHED FEELING iodine Allergy Intermediate HIVES, HOT Verified 07/23/25 11:30 FLASHES WITH IV DYE NO PROBLEM WITH TOPICAL prednisone AdvReac Severe PSYCHOSIS Verified 07/23/25 11:30 Home Medications Medication Instructions Recorded Confirmed Type cholecalciferol (vitamin D3) 25 25 mcg PO HS 04/06/20 08/11/25 History mcg (1,000 unit) tablet (Vitamin D3) cyanocobalamin (vitamin B-12) 500 500 mcg PO HS 04/06/20 08/11/25 History mcg tablet acetaminophen 500 mg tablet 1,000 mg PO HS PRN pain 05/24/21 08/11/25 History gabapentin 600 mg tablet 600 mg PO TID 08/11/25 08/11/25 History melatonin 1 mg tablet 1 mg PO HS PRN Sleep 08/11/25 08/11/25 History Patient History Medical History History of anesthesia reaction Hypoglycemia BCC (basal cell carcinoma) Encounter for pre-operative examination Hyperglycemia Poor historian Liver mass GERD (gastroesophageal reflux disease) Chronic back pain History of DVT (deep vein thrombosis) Neuropathy involving both lower extremities Hypomania Surgical History History of total right knee replacement History of splenectomy Hx of vasectomy History of colonoscopy History of esophagogastroduodenoscopy (EGD) History of cholecystectomy History of hernia surgery History of transurethral resection of prostate History of basal cell carcinoma (BCC) excision History of lumbar discectomy S/P insertion of IVC (inferior vena caval) filter History of tooth extraction History of bilateral cataract extraction Family History Mother Cancer Father Cancer Hypertension Brother Hypertension Unknown Heart disease Sister Family history of diabetes mellitus Sister Family history of diabetes mellitus Other No family history of adverse response to anesthesia Social History Smoking Status: Never smoker Second Hand Exposure: Yes (parents smoked); Do You Dip or Chew Tobacco: No (quit); Hx Alcohol Use: Yes Alcohol type: wine Hx Substance Use: No Preferred Language: Romansh Communication Ability: Effective Visual Impairment: No Limitations Hearing Ability: Normal Laboratory Technologist Required: No Beliefs That Will Affect Care: None marital status: Current Living Situation: Spouse Feels Safe at Home: No Is there a partner from a previous relationship who is making you feel unsafe now?: No Assistive Devices: Cane and Denture - Upper Review of Systems Constitutional: no fever and no chills Eyes: no problem reported Ear, Nose, Mouth, Throat: no problem reported Respiratory: no cough and no dyspnea Cardiovascular: no chest pain Gastrointestinal: no abdominal pain, no nausea, no vomiting and no change in bowel habits Genitourinary: no dysuria Neurologic: no localized weakness and no generalized weakness Psychiatric: no behavioral changes Physical Exam Constitutional: WD/WN, vitals as above Eyes: no scleral abnormality ENMT: external ear and nose normal, oropharynx normal Neck: trachea midline Respiratory: normal respiratory effort, lungs clear to auscultation Cardiovascular: Rate/Rhythm: regular rate and regular rhythm Gastrointestinal (Abdomen): Inspection/Auscultation: abdomen normal to inspection and normal bowel sounds; abdomen not distended Percussion/Palpation: abdomen soft; abdomen nontender Musculoskeletal: Head/Neck/Chest: normocephalic and head atraumatic Results & Data Vital Signs (Past 12 Hours) Vital Signs Temp Pulse Resp BP Pulse Ox O2 Del Method 08/12/25 06:59 36.7 C 67 16 143/77 H 94 Room Air 08/11/25 23:47 36.8 C 73 14 156/75 H 93 Room Air Diagnostic Findings EXAM: CT Abdomen and Pelvis Without Intravenous Contrast INDICATION: Pain TECHNIQUE: Axial computed tomography images of the abdomen and pelvis without intravenous contrast. Sagittal and coronal reformatted images were created and reviewed. This CT exam was performed using one or more of the following dose reduction techniques: automated exposure control, adjustment of the mA and/or kV according to patient size, and/or use of iterative reconstruction technique. COMPARISON: CT pelvis 04/08/2017 FINDINGS: Limitations: None. Lung bases: There is mild dependent atelectasis in the lung bases. The liver is normal in size. There are a few small hypodense nodules likely cysts. There is very mild nodular contour and atrophy of the left lobe. No mass. Pleural space: No visualized pleural effusion or pneumothorax. Heart: No abnormality noted. Mediastinum: No abnormality noted. ABDOMEN: Liver: Lack of intravenous contrast limits detection of some masses. No abnormality noted. Gallbladder and bile ducts: The gallbladder has been removed. In the martha hepatis is a limiting calcified structure adjacent to his cholecystectomy clips measuring 1.6 cm diameter which could be a dilated cystic duct stump. There may be a small stone. The common bile duct is normal in caliber. Pancreas: No pancreatic mass, calcification, inflammation or ductal dilation noted. Spleen: No acute abnormality noted. Adrenals: No acute abnormality noted. Kidneys and ureters: No abnormality noted. No stones. No hydronephrosis. No significant perinephric fluid. Stomach and bowel: There is marked diverticulosis of the entire colon most notable on the left. No diverticulitis. Small bowel loops dilated proximal and mid small bowel loops. Moe transition point is not distinctly defined. It is likely in the mid pelvis where there is some associated mesenteric inflammation and slight caliber change. PELVIS: Appendix: No findings to suggest acute appendicitis. Bladder: Appears normal for the degree of filling. No stones or inflammation. No large mass. Masses may not be detected in the absence of opacification. Reproductive: No abnormalities noted. ABDOMEN and PELVIS: Intraperitoneal space: No free air. No significant fluid collection. Bones/joints: Degenerative changes noted throughout the spine. No acute osseous abnormality seen. Degenerative changes noted in the hips right greater than left. Soft tissues: No acute abnormality noted. Vasculature: Inferior vena cava filter in good position. Atherosclerotic calcification of the aorta and branches. No aneurysm. Lymph nodes: No pathologically enlarged lymph nodes. IMPRESSION: 1. Abnormal intestinal gas pattern with findings of early or partial small bowel obstruction. Transition point is not distinctly defined but likely in the mid small bowel in the mid pelvis. Consider adhesions. Impression extensive colonic diverticulosis. No evidence of diverticulitis. 2. Slight lobulated contour of the liver. Correlate clinically for possible cirrhosis.
--- NOTE | 2025-08-12 14:40 | Hospitalist Progress Note ---
Date of Service August 12, 2025 Assessment & Plan (1) Neuropathy: (2) History of DVT (deep vein thrombosis): (3) Small bowel obstruction: Plan Patient with PMH of multiple abdominal surgeries, constipation, DVT, basal cell carcinoma, and neuropathy presents into the hospital for abdominal pain that has been ongoing for about 4 weeks. After meeting with PCP on 07/30 tried an increase dose of Miralax which helped and then did a liquid diet and advanced to bland diet, however abdominal pain is back. Labs and vitals were fairly unremarkable. On Abd/pelvis CT it showed an early or partial SBO. #SBO - SBO most likely from adhesion of multiple abdominal surgeries. - gen surg consulted recs appreciated - IV LR 125ml/hr - tylenol 1000 IV Q8H PRN for pain management - Patient had BM last night. Advanced diet to clear liquids. - Continue to monitor for worsening pain, blood pressure, and fever. If those happen will order a lactate. - CBC no diff, and BMP in AM #History of DVT - Patient had a history of a DVT and stated at bedside that he had a "mesh" put in the right groin area to help prevent clots. - Is not on blood thinners at home - Patient had BM. Will give Lovenox for DVT prophylaxis. #Neuropathy - Continue home gabapentin Full Code DVT Prophylaxis: Lovenox Admission and Anticipated Discharge Date Admission Date: August 11, 2025 Subjective Patient was currently in the restroom when going to patient's room. Nurse stated that patient had a large solid bowel movement last night. Review of Systems Review of Systems: as per HPI Results & Data Results & Data Vital Signs (Past 12 Hours) Vital Signs Temp Pulse Resp BP Pulse Ox O2 Del Method 08/12/25 06:59 36.7 C 67 16 143/77 H 94 Room Air
[2025-08-13 06:49] LABS: Hematocrit (blood only) 42.1 % (42.0-52.0); Hemoglobin 14.6 g/dL (14.0-18.0); Mean Corpuscular Hemoglobin 30.3 pg (25.0-34.0); Mean Corpuscular Volume 87.3 fL (80.0-100.0); Platelet Count 248 K/uL (130-400); RDW Standard Deviation 42.0 fL (36.4-46.3); Red Blood Count 4.82 M/uL (4.70-6.10); White Blood Count 5.34 K/ul (4.8-10.8)
[2025-08-13 07:34] LABS: Anion Gap 6 (3-11); Blood Urea Nitrogen 14 mg/dl (6-23); Calcium 9.4 mg/dl (8.6-10.3); Carbon Dioxide 28 mmol/L (21-32); Chloride 101 mmol/L (98-107); Creatinine Clr Calc Pharmacy 73.0 ml/min; Glucose 109 mg/dl (70-99(Fasting)); Sodium 135 mmol/L (136-145)
[2025-08-13] MEDS: ENOXAPARIN INJ 40 MG/0.4 ML SYR SQ SCH (08:20)
--- NOTE | 2025-08-13 15:38 | Hospitalist Progress Note ---
Date of Service August 13, 2025 Assessment & Plan (1) Neuropathy: (2) History of DVT (deep vein thrombosis): (3) Small bowel obstruction: Plan Patient with PMH of multiple abdominal surgeries, constipation, DVT, basal cell carcinoma, and neuropathy presents into the hospital for abdominal pain that has been ongoing for about 4 weeks. After meeting with PCP on 07/30 tried an increase dose of Miralax which helped and then did a liquid diet and advanced to bland diet, however abdominal pain is back. Labs and vitals were fairly unremarkable. On Abd/pelvis CT it showed an early or partial SBO. #SBO - SBO most likely from adhesion of multiple abdominal surgeries. - gen surg consulted recs appreciated - IV LR 125ml/hr. Will d/c due to patient not being on NPO. - Due to tolerating PO, will switch to Tylenol 650mg PO PRN - Tolerated full liquid diet last night. Had regular diet this morning but felt some pressure in abdomen in the afternoon. Changed diet to low-fiber. - Continue to monitor for worsening pain, blood pressure, and fever. If those happen will order a lactate. - CBC no diff, and BMP in AM #History of DVT - Patient had a history of a DVT and stated at bedside that he had a "mesh" put in the right groin area to help prevent clots. - Is not on blood thinners at home - Patient had BM. Will give Lovenox for DVT prophylaxis. #Neuropathy - Continue home gabapentin Full Code DVT Prophylaxis: Lovenox Admission and Anticipated Discharge Date Admission Date: August 11, 2025 Subjective Patient is currently sitting comfortably this AM. Reports he passed a lot of gas last night and is still having no issues with urination. Reports he tolerated dinner (full liquid) last night. States that his symptoms are gone. Though later this afternoon after having a regular diet felt some pressure in his abdomen. Patient has not had a BM today. Denies chest pain, shortness of breath, and N/V. Review of Systems Review of Systems: as per HPI Physical Exam Constitutional: WD/WN, vitals as above Eyes: + anicteric sclerae and EOM intact bilat erally Respiratory: normal respiratory effort, lungs clear to auscultation Cardiovascular: Rate/Rhythm: regular rate and regular rhythm Heart Sounds: normal S1, normal S2 and + murmur (systolic) Gastrointestinal (Abdomen): Percussion/Palpation: abdomen soft; abdomen nontender and abdomen not rigid Skin: no rashes, warm and dry Trauma: + evidence of skin trauma (on R. lat eral ankle had skin biopsy done. Is scabbed over.) Psychiatric: Apperance: appeared stated age Eye Contact: good eye contact Speech: normal rate/rhythm/volume of speech Results & Data Results & Data Vital Signs (Past 12 Hours) Vital Signs Temp Pulse Resp BP BP Pulse Ox O2 Del Method 08/13/25 15:03 36.4 C L 69 16 135/81 94 Room Air 08/13/25 08:42 17 08/13/25 07:56 36.3 C L 69 23 149/84 H 92 Room Air 08/13/25 07:55 Room Air
[2025-08-13] MEDS ORDERED: ACETAMINOPHEN 325 MG TAB PO PRN (17:08)
[2025-08-14 06:44] LABS: Hematocrit (blood only) 42.4 % (42.0-52.0); Hemoglobin 15.2 g/dL (14.0-18.0); Mean Corpuscular Hemoglobin 31.1 pg (25.0-34.0); Mean Corpuscular Volume 86.9 fL (80.0-100.0); Platelet Count 262 K/uL (130-400); RDW Standard Deviation 41.3 fL (36.4-46.3); Red Blood Count 4.88 M/uL (4.70-6.10); White Blood Count 5.76 K/ul (4.8-10.8)
[2025-08-14 07:25] LABS: Anion Gap 6.0 (3-11); Blood Urea Nitrogen 16.0 mg/dl (6-23); Calcium 9.8 mg/dl (8.6-10.3); Carbon Dioxide 30.0 mmol/L (21-32); Chloride 100.0 mmol/L (98-107); Creatinine Clr Calc Pharmacy 75.5 ml/min; Glucose 98.0 mg/dl (70-99(Fasting)); Potassium 3.9 mmol/L (3.5-5.1); Sodium 136.0 mmol/L (136-145)
--- NOTE | 2025-08-14 11:45 | Hospitalist Progress Note ---
Date of Service August 14, 2025 Assessment & Plan (1) Neuropathy: (2) History of DVT (deep vein thrombosis): (3) Small bowel obstruction: Plan Patient with PMH of multiple abdominal surgeries, constipation, DVT, basal cell carcinoma, and neuropathy presents into the hospital for abdominal pain that has been ongoing for about 4 weeks. After meeting with PCP on 07/30 tried an increase dose of Miralax which helped and then did a liquid diet and advanced to bland diet, however abdominal pain is back. Labs and vitals were fairly unremarkable. On Abd/pelvis CT it showed an early or partial SBO. #SBO - SBO most likely from adhesion of multiple abdominal surgeries. - gen surg consulted recs appreciated - Due to tolerating PO, will switch to Tylenol 650mg PO PRN - Continue to monitor for worsening pain, blood pressure, and fever. If those happen will order a lactate. - CBC no diff, and BMP in AM - Reports that he is having epigastric pain as well as pain below the umbilicus. Changed diet from the low-fiber to full liquid. - Ordered KUB XRay it showed: a stable mild bowel distension in the left abdomen that was 4.6cm in diameter and grossly stable. - Spoke with patient to have him start moving around to help with activating peristalsis #History of DVT - Patient had a history of a DVT and stated at bedside that he had a "mesh" put in the right groin area to help prevent clots. - Is not on blood thinners at home - Patient had BM. Will give Lovenox for DVT prophylaxis. #Neuropathy - Continue home gabapentin Full Code DVT Prophylaxis: Lovenox Admission and Anticipated Discharge Date Admission Date: August 11, 2025 Subjective Patient is currently sitting comfortably this AM. Reports he has not had a BM all day yesterday. States that yesterday/last night had 5/10 pain in the abdomen once. This morning he states the abdominal pain is almost nonexistent. States that he occ. is passing gas. He is drinking plenty of fluids. Denies chest pain, shortness of breath, N/V, headache. Review of Systems Review of Systems: as per HPI Physical Exam Constitutional: WD/WN, vitals as above Eyes: + anicteric sclerae and EOM intact bilat erally Respiratory: normal respiratory effort, lungs clear to auscultation Cardiovascular: Rate/Rhythm: regular rate and regular rhythm Heart Sounds: normal S1, normal S2 and + murmur (systolic) Extremities: no edema Gastrointestinal (Abdomen): Percussion/Palpation: + abdomen tender (epigastric and below the umbilicus) and abdomen soft; abdomen not rigid Skin: no rashes, warm and dry Trauma: + evidence of skin trauma (on R. lateral ankle had skin biopsy done. Is scabbed over.) Psychiatric: Apperance: appeared stated age Eye Contact: good eye contact Speech: normal rate/rhythm/volume of speech Results & Data Results & Data Vital Signs (Past 12 Hours) Vital Signs Temp Pulse Resp BP Pulse Ox O2 Del Method 08/14/25 07:22 36.4 C L 76 18 149/79 H 94 Room Air 08/14/25 07:20 Room Air Resident Activity Tracking Resident Involvement: Resident Care Provided Care Provided: Adult Hospital Medicine
--- NOTE | 2025-08-14 12:09 | XRay Report ---
KUB HISTORY: Abdominal Pain/SBO COMPARISON STUDY: 08/11/2025 FINDINGS: Stable right upper quadrant surgical clips and IVC filter. There is small bowel distention at the left abdomen measuring up to 4.6 cm diameter, grossly stable. No colonic distention seen. Ther e is moderate retained stool. IMPRESSION: Stable mild small bowel distention. ACT 112: Negative or not required by law. The above report was generated using voice recognition software. It may contain grammatical, syntax o r spelling errors. Electronically signed by: Delfino Simms M.D. 08/14/2025 12:08 PM
[2025-08-15 06:31] LABS: Hematocrit (blood only) 44.4 % (42.0-52.0); Hemoglobin 15.7 g/dL (14.0-18.0); Mean Corpuscular Hemoglobin 30.5 pg (25.0-34.0); Mean Corpuscular Volume 86.4 fL (80.0-100.0); Platelet Count 267 K/uL (130-400); RDW Standard Deviation 40.9 fL (36.4-46.3); Red Blood Count 5.14 M/uL (4.70-6.10); White Blood Count 5.63 K/ul (4.8-10.8)
[2025-08-15 07:45] LABS: Anion Gap 11 (3-11); Blood Urea Nitrogen 14 mg/dl (6-23); Calcium 10.0 mg/dl (8.6-10.3); Carbon Dioxide 26 mmol/L (21-32); Chloride 99 mmol/L (98-107); Creatinine Clr Calc Pharmacy 71.4 ml/min; Glucose 102 mg/dl (70-99(Fasting)); Sodium 136 mmol/L (136-145)
[2025-08-15] MEDS: diphenhydrAMINE 50 MG/ML VIAL IV ONE (14:42)
[2025-08-15 14:49] VITALS: O2SAT 98
[2025-08-15] MEDS: OPTIRAY 320 125ml IV ONE (15:48)
[2025-08-15] MEDS ORDERED: diphenhydrAMINE 50 MG/ML VIAL IV ONE (17:13)
--- NOTE | 2025-08-15 18:11 | CT Scan Report ---
CT angiogram of the abdomen pelvis with contrast Technique: Postcontrast axial images of the abdomen pelvis. Coronal and sagittal reformatted images made available for review Comparison made to prior exam dated 08/11/2025 Findings: The dome of the liver is not imaged on this exam. Multiple subcentimeter hypodensities scattered throughout the liver too small for further density characterization the likely representing cyst. Postoperative changes prior cholecystectomy. Superior mesenteric cyst inferior mesenteric bilateral renal and celiac arteries are widely patent. Abdominal aorta is unremarkable without evidence of stenosis dissection aneurysm or occlusion. IVC filter is present. Urinary bladder is unremarkable. Diverticulosis evidence of diverticulitis. Few fluid-filled none dilated loops of small bowel within the pelvis are identified. Bone windows demonstrate no focal abnormality Impression Few nondilated fluid-filled loops of small bowel within the mid abdomen. Findings may represent enteritis in appropriate clinical setting. No evidence of mesenteric ischemia. Electronically signed by Jet Dorsey 08-15-2025 6:10 PM
--- NOTE | 2025-08-15 19:02 | Discharge Summary ---
Date of Service August 15, 2025 Admission HPI Per Admitting Provider Patient with PMH of extensive abdominal surgery (14 hernia repairs), constipation, DVT, basal cell carcinoma, and neuropathy presents into the hospital for 4 week abdominal pain. Patient saw PCP on 07/30 with similar symptoms. In the note reports that his last BM was on 07/20 and then was starting to have cramps. Before 07/30 tried miralax three times that did not work. At the end of the visit, patient was advised to increase the dose of the miralax. Patient's reports the increased dose helped then patient went on liquid diet then advanced to a bland diet. However, abdominal pain is back and states the pain is at the lower quadrants of his abdomen. Last night he felt that his stomach was heavily "inflated basketball". Patient tried to vomit but couldn't. He says the pain is a "steady" pain and his reports that it "comes and goes" like a "rolling" pain. Reports that 2 days ago he had a bowel movement that only had finger sized stool then diarrhea. Patient states that he can pass gas. He denies fever, chest pain, and shortness of breath. His says he can urinate well. Admission Exam Per Admitting Provider Physical Exam Constitutional: WD/WN, vitals as above Eyes: + anicteric sclerae and EOM intact bilat erally Respiratory: normal respiratory effort, lungs clear to auscultation Cardiovascular: Rate/Rhythm: regular rate and regular rhythm Heart Sounds: normal S1, normal S2 and + murmur (systolic) Gastrointestinal (Abdomen): Percussion/Palpation: + abdomen tender (LLQ, RLQ) and abdomen soft; abdomen not rigid Skin: no rashes, warm and dry Trauma: + evidence of skin trauma (on R. lateral ankle had skin biopsy done. Is scabbed over.) Psychiatric: Apperance: appeared stated age Eye Contact: good eye contact Speech: normal rate/rhythm/volume of speech Principal Diagnosis Partial SBO Discharge Exam Constitutional WD/WN, vitals as above Eyes + anicteric sclerae and EOM intact bilaterally Respiratory normal respiratory effort, lungs clear to auscultation Cardiovascular Rate/Rhythm: regular rate and regular rhythm Heart Sounds: normal S1, normal S2 and + murmur (systolic) Extremities: no edema Gastrointestinal (Abdomen) Percussion/Palpation: + abdomen tender (epigastric and below the umbilicus) and abdomen soft; abdomen not rigid Skin no rashes, warm and dry Trauma: + evidence of skin trauma (on R. lateral ankle had skin biopsy done. Is scabbed over.) Psychiatric Apperance: appeared stated age Eye Contact: good eye contact Speech: normal rate/rhythm/volume of speech Discharge Data Allergies Allergy/AdvReac Type Severity Reaction Status Date / Time Iodinated Contrast Media Allergy Intermediate HIVES,HOT Verified 07/23/25 11:30 FLUSHED FEELING iodine Allergy Intermediate HIVES, HOT Verified 07/23/25 11:30 FLASHES WITH IV DYE NO PROBLEM WITH TOPICAL prednisone AdvReac Severe PSYCHOSIS Verified 07/23/25 11:30 Consultations 08/11/25 13:20 ED Decision to Admit Stat 08/11/25 14:25 Consult General Surgery Routine Ordered Studies 08/11/25 11:49 CT Abd and Pelvis [CT abd pelvis wo con] Stat 08/15/25 13:03 CTA abdomen pelvis w con [CT angio abdomen pelvis w con] Urgent Abdomen/Pelvis CT 08/11/25 11:49 EXAM: CT Abdomen and Pelvis Without Intravenous Contrast INDICATION: Pain TECHNIQUE: Axial computed tomography images of the abdomen and pelvis without intravenous contrast. Sagittal and coronal reformatted images were created and reviewed. This CT exam was performed using one or more of the following dose reduction techniques: automated exposure control, adjustment of the mA and/or kV according to patient size, and/or use of iterative reconstruction technique. COMPARISON: CT pelvis 04/08/2017 FINDINGS: Limitations: None. Lung bases: There is mild dependent atelectasis in the lung bases. The liver is normal in size. There are a few small hypodense nodules likely cysts. There is very mild nodular contour and atrophy of the left lobe. No mass. Pleural space: No visualized pleural effusion or pneumothorax. Heart: No abnormality noted. Mediastinum: No abnormality noted. ABDOMEN: Liver: Lack of intravenous contrast limits detection of some masses. No abnormality noted. Gallbladder and bile ducts: The gallbladder has been removed. In the martha hepatis is a limiting calcified structure adjacent to his cholecystectomy clips measuring 1.6 cm diameter which could be a dilated cystic duct stump. There may be a small stone. The common bile duct is normal in caliber. Pancreas: No pancreatic mass, calcification, inflammation or ductal dilation noted. Spleen: No acute abnormality noted. Adrenals: No acute abnormality noted. Kidneys and ureters: No abnormality noted. No stones. No hydronephrosis. No significant perinephric fluid. Stomach and bowel: There is marked diverticulosis of the entire colon most notable on the left. No diverticulitis. Small bowel loops dilated proximal and mid small bowel loops. Moe transition point is not distinctly defined. It is likely in the mid pelvis where there is some associated mesenteric inflammation and slight caliber change. PELVIS: Appendix: No findings to suggest acute appendicitis. Bladder: Appears normal for the degree of filling. No stones or inflammation. No large mass. Masses may not be detected in the absence of opacification. Reproductive: No abnormalities noted. ABDOMEN and PELVIS: Intraperitoneal space: No free air. No significant fluid collection. Bones/joints: Degenerative changes noted throughout the spine. No acute osseous abnormality seen. Degenerative changes noted in the hips right greater than left. Soft tissues: No acute abnormality noted. Vasculature: Inferior vena cava filter in good position. Atherosclerotic calcification of the aorta and branches. No aneurysm. Lymph nodes: No pathologically enlarged lymph nodes. IMPRESSION: 1. Abnormal intestinal gas pattern with findings of early or partial small bowel obstruction. Transition point is not distinctly defined but likely in the mid small bowel in the mid pelvis. Consider adhesions. Impression extensive colonic diverticulosis. No evidence of diverticulitis. 2. Slight lobulated contour of the liver. Correlate clinically for possible cirrhosis. ACT 112: N/A Electronically signed by Norma Henry 08-11-2025 12:15 PM KUB X-Ray 08/14/25 11:32 KUB HISTORY: Abdominal Pain/SBO COMPARISON STUDY: 08/11/2025 FINDINGS: Stable right upper quadrant surgical clips and IVC filter. There is small bowel distention at the left abdomen measuring up to 4.6 cm diameter, grossly stable. No colonic distention seen. There is moderate retained stool. IMPRESSION: Stable mild small bowel distention. ACT 112: Negative or not required by law. The above report was generated using voice recognition software. It may contain grammatical, syntax or spelling errors. Electronically signed by: Delfino Simms M.D. 08/14/2025 12:08 PM Abdomen/Pelvis CTA 08/15/25 13:03 CT angiogram of the abdomen pelvis with contrast Technique: Postcontrast axial images of the abdomen pelvis. Coronal and sagittal reformatted images made available for review Comparison made to prior exam dated 08/11/2025 Findings: The dome of the liver is not imaged on this exam. Multiple subcentimeter hypodensities scattered throughout the liver too small for further density characterization the likely representing cyst. Postoperative changes prior cholecystectomy. Superior mesenteric cyst inferior mesenteric bilateral renal and celiac arteries are widely patent. Abdominal aorta is unremarkable without evidence of stenosis dissection aneurysm or occlusion. IVC filter is present. Urinary bladder is unremarkable. Diverticulosis [w/o] evidence of diverticulitis. Few fluid-filled none dilated loops of small bowel within the pelvis are identified. Bone windows demonstrate no focal abnormality Impression Few nondilated fluid-filled loops of small bowel within the mid abdomen. Findings may represent enteritis in appropriate clinical setting. No evidence of mesenteric ischemia. Electronically signed by Jet Dorsey 08-15-2025 6:10 PM Called radiologist and he said he meant to say "diverticulosis w/o evidence of diverticulitis". Hospital Course (1) Neuropathy: (2) History of DVT (deep vein thrombosis): (3) Small bowel obstruction: Plan Patient with PMH of multiple abdominal surgeries, constipation, DVT, basal cell carcinoma, and neuropathy presents into the hospital for abdominal pain that has been ongoing for about 4 weeks. After meeting with PCP on 07/30 tried an increase dose of Miralax which helped and then did a liquid diet and advanced to bland diet, however abdominal pain is back. Labs and vitals were fairly unremarkable. On Abd/pelvis CT it showed an early or partial SBO. #SBO - SBO most likely from adhesion of multiple abdominal surgeries. - gen surg consulted recs appreciated - Due to tolerating PO, will switch to Tylenol 650mg PO PRN - Continue to monitor for worsening pain, blood pressure, and fever. If those happen will order a lactate. - CBC no diff, and BMP in AM - Reports that he is having epigastric pain as well as pain below the umbilicus. Changed diet from the low-fiber to full liquid. - Ordered KUB XRay it showed: a stable mild bowel distension in the left abdomen that was 4.6cm in diameter and grossly stable. - Spoke with patient to have him start moving around to help with activating peristalsis - Ordered CTA of abdomen/pelvis which came back with nondilated fluid filled loops. - On discharge (08/15/25) still had not had another BM. - Recommended to patient to continue full-liquid diet at home and slowly advance diet to a low-fiber diet. Also recommended he take miralax, drink plenty of fluids, and to continue to move around. Recommended he see his PCP in the next week or two. #History of DVT - Patient had a history of a DVT and stated at bedside that he had a "mesh" put in the right groin area to help prevent clots. - Is not on blood thinners at home - Patient had BM on 08/12/25. Will give Lovenox for DVT prophylaxis. #Neuropathy - Continue home gabapentin Full Code DVT Prophylaxis: Lovenox Total Time Total Time Spent Total Time Spent (In Minutes): as per attending Discharge Plan Discharge Items Patient Disposition: Home - Self-Care Reason For Visit: ABDOMINAL PAIN Discharge Diagnosis: Partial Small Bowel Obstruction Condition on Discharge: Fair Activity: Resume your previous activity Non-emergency contact: Primary Care Provider Call non-emergency contact if: your symptoms worsen, your pain is not controlled and your temperature is above 101.5 Follow-up/Referrals: Kyler Leggett, [Primary Care Provider] - 08/23/25 1:25 pm Diet: Low Fiber Addtl Attending Provider Instructions: You were admitted into the hospital for worsening abdominal pain for a couple of weeks. We took some imaging of your abdomen and found a partial small bowel obstruction. Because of this we had you on bowel rest, which included not having you eat or drink so your bowels could hopefully correct yourself. Fortunately you had a bowel movement on and advanced your diet. However when we advanced your diet to a low fiber diet, you noted some gas pain when we pressed on your stomach, and still had not had a bowel movement. We then changed your diet back to a full liquid diet. With your history of multiple abdominal surgeries you are at a higher risk of another small bowel obstruction to occur. If you have symptoms of another small bowel obstruction and feel you can make the trip, we recommend you go to [place]. However, if the symptoms are extremely severe, you have a fever, are short of breath, and/or feel you cant make it to [place] please come back to the ER. We recommend you follow-up with your PCP in the next week or two to monitor your symptoms. For now continue to eat a full liquid diet, as well as try taking miralax to help with trying to get a bowel movement. Slowly increase your diet as tolerated and finally eat foods with low fiber. These include: Foods to eat (low fiber) would be: * Grains:White bread, white rice, white pasta, crackers, refined cereals. * Fruits:Peeled and cooked (applesauce, canned peaches/pears), ripe bananas, cantaloupe, honeydew, watermelon. * Vegetables:Well-cooked and peeled (potatoes without skin, carrots, green beans, spinach, squash). * Protein:Tender meats, fish, poultry, eggs, smooth peanut butter, tofu. * Dairy:Milk, cheese, yogurt (if tolerated). * Fats:Butter, oils, mayonnaise, smooth sauces. Foods to avoid (high fiber) would be: * Grains:Whole wheat, brown rice, oatmeal, bran, whole-grain breads, granola. * Fruits:Berries, dried fruits, prunes, pineapple, raw fruits with skin/seeds, fruit with pulp. * Vegetables:Raw vegetables, corn, broccoli, cabbage, peas, beans, seeds. * Protein:Nuts, seeds, beans, lentils, crunchy peanut butter, chewy meats. * Other:Popcorn, coconut, foods with red or purple dye. Romero Tips * Read Labels:Look for 1-2 grams of fiber or less per serving. * Cook Thoroughly:Cook vegetables until tender and peel skins and seeds. * Stay Hydrated:Drink plenty of water, unless advised otherwise. * Short-Term:Often temporary;consult your doctor or dietitian for duration. Please drink plenty of water. CONTACT YOUR PRIMARY CARE PROVIDER if you experience any of the following: Worsening of symptoms Fever, chills, or fatigue Difficulty following your treatment plan, or difficulty taking medications CALL 911 OR GO TO THE EMERGENCY DEPARTMENT if you experience any of the following: Sudden, severe abdominal pain or nausea/vomiting Severe chest pain, or chest pain that radiates (moves) to your jaw or arm Sudden, severe shortness of breath or difficulty breathing It was a pleasure treating you. Thank you and your for your service and [employer]! Pending Studies at Discharge: No Stand-Alone Forms: My [facility], Smoking Cessation Medications and DC Order Prescriptions: Continued cyanocobalamin (vitamin B-12) 500 mcg Tablet 500 mcg PO HS cholecalciferol (vitamin D3) [Vitamin D3] 25 mcg (1,000 unit) Tablet 25 mcg PO HS acetaminophen 500 mg tablet 1,000 mg PO HS PRN (Reason: pain) gabapentin 600 mg tablet 600 mg PO TID melatonin 1 mg Tablet 1 mg PO HS PRN (Reason: Sleep) Discharge Orders: Discharge Order (Routine); Ordered 08/15/25 Ordered By: Ghulam Cantu Admission Data Admit Date/Time: 08/11/25 14:10 Attending Provider: Harsha Silva Admit Provider: Ghulam Cantu Primary Care Provider: Kyler Leggett Other Providers: Moses Mandujano; Atul Suh Resident Activity Tracking Resident Involvement: Resident Care Provided Care Provided: Adult Hospital Medicine
[2025-08-15 19:27] VITALS: BP 154/88; RESP 16; TEMP 97.5
[2025-08-15 19:36] VITALS: PULSE 66
== END 2025-08-15 20:10 | disposition home or self-care (01) | DRG 390 ==
LOC: ED 10:34 → 3N 14:10 → SUATTDRO 14:10 → 3N 16:23